=== PATIENT | female | born 1970 | race Caucasian/White ===

== ENCOUNTER 2023-12-31 16:47 | Outpatient (OUT) | payer BC, SELFPAY ==
--- NOTE | 2023-12-31 | XR_ITS ---
[address] [address] Patient Name: ANDREW JALLOH MRN: [id number] date: 1970 Sex: F Assigned Patient Location: [facility] Current Patient Location: Accession/Order Number: [id number] Exam Date: 12/31/2023 16:58 Report Date: 01/03/2024 07:45 At the request of: HELEN RUANO Procedure: XR clavicle RT PROCEDURE: XR clavicle RT HISTORY: Right clavicle pain COMPARISON: None. FINDINGS: BONES:Degenerative osteophytes along the margins of the acromioclavicular joint. No fracture, dislocation, bone lesion. SOFT TISSUES:No visible soft tissue swelling. EFFUSION:None visible. OTHER: Negative. XR/XR clavicle RT IMPRESSION: 1. No acute bone abnormality. 2. Moderate degenerative changes of acromioclavicular joint which would predispose to rotator cuff injury. Electronically authenticated by: NKECHI ARANDA Date: 01/03/2024 07:45
--- NOTE | 2023-12-31 | XR_ITS ---
The [address] [address] Patient Name: ANDREW JALLOH MRN: [id number] date: 1970 Sex: F Assigned Patient Location: [facility] Current Patient Location: [facility] Accession/Order Number: [id number] Exam Date: 12/31/2023 16:58 Report Date: 01/03/2024 07:48 At the request of: HELEN RUANO Procedure: XR cervical spine 5V EXAMINATION: XR cervical spine 5V HISTORY: Neck pain ; right clavicle pain radiating into neck and shoulder; no known injury COMPARISON: No relevant comparison available. FINDINGS: BONES: Mild degenerative facet arthropathy C5-C6, C6-C7. No fracture or spondylolisthesis. DISC SPACES: Slight disc space narrowing C4-C5, C5-C6, C6-C7 PARASPINOUS: Negative. No paraspinous abnormality is seen. OTHER: Negative. XR/XR cervical spine 5V IMPRESSION: 1. No acute abnormality. 2. Mild degenerative changes of the cervical spine. Electronically authenticated by: NKECHI ARANDA Date: 01/03/2024 07:48
== END 2023-12-31 16:48 | disposition home or self-care (01) ==
LOC: RAD 16:47
PROVIDERS: PCP Family Medicine; Visit Provider Family Medicine
DX: M89.8X1 Other specified disorders of bone, shoulder (principal); M54.2 Cervicalgia; M19.011 Primary osteoarthritis, right shoulder
CPT/HCPCS: 72050; 73000

== ENCOUNTER 2024-03-09 07:23 | Outpatient (OUT) | payer BC, SELFPAY ==
--- OUTSIDE RECORDS SUMMARY | 2024-03-09 07:25 | XMS_ITS | CCD ---
Author Organization [facility] Care Team Providers Care Video Technician Name Role Phone Unavailable Primary Care Provider Amna valenzuela REQUEST, DR SAMUEL LISTED Admitting Unavaila ble REQUEST, DR SAMUEL LISTED Attending Tristana travon PINTO, DR JUMANA Valenzuela Primary Care Unavailable REQUEST, DR SAMUEL LISTED Consulting Tristana SHAIKH Vidhya Arevalo Admitting Unavailable SHAIKH Vidhya DENG Attending Unavailable BINDU, DR JUMANA Valenzuela Primary Care Unavailable SHAIKH Vidhya DENG Consulting Unavailable BINDU, DR JUMANA Valenzuela Admitting Unavailable BINDU, DR JUMANA Valenzuela Attending Unavailable BINDU, DR JUMANA Valenzuela Primary Care Unavailable BINDU, DR JUMANA Valenzuela Consulting Unavailable Jumana Pinto MD Primary Care Provider [phone] Jumana Pinto MADELIN RODRÍGUEZ Referring Unavailable JUMANA PINTO Primary Care Unavailable Allergies Allergy Classification Reported Allergen(s) Allergy Type Date of Onset Reaction(s) Facility (3 sources) Penicillins Propensity to adverse reactions to drug 4 [place], [place] Comment on above: Onset Date: 11/23/19 21 (1 source) Penicillins Propensity to adverse reactions to drug [address] [place] [address] (4 sources) Penicillin G Drug Allergy 4 [facility] (3 sources) Substance with penicillin structure and antibacterial mechanism of action (substance) Drug allergy 1 Unknown [employer] Other Medications Current Medications Medication Drug Class(es) Dates Sig (Normalized) Sig (Original) nystatin 100 unt/mg topical powder (3 sources) Polyene Antifungal Start: 07-09-2016 nystatin (MYCOSTATIN) 372252 UNIT/GM powder Indications: Tinea cruris Apply 2 times daily as needed for rash. 1 Bottle 1 07/09/2016 Active Completed/Discontinued Medications Medication Drug Class(es) Dates Sig (Normalized) Sig (Original) citalopram 20 mg oral tablet (6 sources) Serotonin Reuptake Inhibitor Start: 06-13-2023 End: 12-31-2023 take 1 tablet by mouth once daily Citalopram 20 mg tablet Discontinued 0 .ROUTE .COMPLEX 90 September 11, 2023 10:36am December 31, 2023 11:56am TAKE 1 TABLET BY MOUTH EVERY DAY FOR 90 DAYS Start: 06-13-2023 End: 06-13-2023 take 1 tablet by mouth once daily Citalopram 20 mg tablet Discontinued 20 MG PO Daily June 12, 2023 11:00pm June 13, 2023 10:28am Start: 11-22-2022 take 1 tablet by norma th every twenty-four hours Citalopram Hydrobromide 20 MG 1 tablet Orally Once a day for 30 day(s) Nov, Active Problems Problem Classification Problem Date Documented Da te Episodic/Chronic Anxiety disorders (11 sources) Generalized anxiety disorder; Translations: [Generalized anxiety disorder] Onset: 11-22-2020 Chronic Malaise and fatigue (8 sources) Other fatigue; Translations: [Fatigue] Onset: 08-08-2021 Episodic Other bone disease and musculoskeletal deformities (1 source) Clavicle pain; Translations: [Other specified disorders of bone, shoulder] 12-31-2023 Episodic Other bone disease and musculoskeletal deformities (1 source) Other specified disorders of bone, shoulder; Translations: [Disorder of bone and cartilage, unspecified] 12-31-2023 Episodic Other screening for suspected conditions (not mental disorders or infectious disease) (1 source) Encounter for screening mammogram for malignant neoplasm of breast; Translations: [Encounter for screening mammogram for malignant neoplasm of breast] Onset: 04-23-2023 Episodic Spondylosis; intervertebral disc disorders; other back problems (2 sources) Neck pain; Translations: [Cervicalgia] 12-31-2023 Episodic Unclassified (3 sources) Patient encounter status; Translations: [Well woman exam with routine gynecological exam] Results Test Name Value Interpretation Reference Range Facil ity [facility] DIG[facility] SCREEN SELF REFERRAL W OR WO CAD BILATERALon 04-23-2023 [facility] DIGITAL SCREEN SELF REFERRAL W OR WO CAD BILATERAL EXAMINATION: SCREENING DIGITAL BILATERAL MAMMOGRAM WITH TOMOSYNTHESIS, 04/23/2023 TECHNIQUE: Screening mammography of the bilateral breasts was performed with tomosynthesis. 2D standard and 3D tomosynthesis combination imaging performed through both breasts in the MLO and CC projection. Computer aided detection was utilized in the interpretation of this exam. COMPARISON: January 16, 2022 and September 24, 2020 HISTORY: Screening. FINDINGS: Breasts are composed of scattered fibroglandular density. There is no dominant mass, architectural distortion or concerning grouping of microcalcification in either breast. IMPRESSION: No mammographic evidence of malignancy BIRADS: BIRADS - CATEGORY 1 Negative. Normal interval follow-up is recommended in 12 months. OVERALL ASSESSMENT - NEGATIVE A letter of notification will be sent to the patient regarding the results. The [employer] recommends annual mammograms for women 40 years and older. Interpreted by: Rohit Garza DO Signed by: Rohit Garza DO 04/23/23 Recipients: Jumana Pinto MD - Fax Final result Normal [facility] VIT D 1 25 DIHYDROXYon 08-10 Calcitriol(1,25 di-OH Vit D) 40.3 pg/mL Normal 24.8-81.5 [facility] Comment on above: Result Comment: Pl ease note reference interval change Performed By: #### V [id number] #### [facility] [address] [place] [address] Dr. Patricia Carpenter CBC AUTO DIFFon 08-08-2021 BASO # 0.1 103/ul Normal 0.0-0.1 [facility] Comment on above: Performed By: #### D ATCBC #### [facility] [address] [place] [address] Dr. Patricia Carpenter Basophils/100 WBC (Bld) 1.1 % Normal 0.2-2.0 [facility] Comment on above: Performed By: #### D ATCBC #### [facility] [address] [place] [address] Dr. Patricia Carpenter EO # 0.2 103/ul Normal 0.0-0.7 [facility] Comment on above: Performed By: #### D ATCBC #### [facility] [address] [place] [address] Dr. Patricia Carpenter Eosinophils/100 WBC (Bld) 2.4 % Normal 0.9-7.0 [facility] Comment on above: Performed By: #### D ATCBC #### [facility] [address] [place] [address] Dr. Patricia Carpenter Erythrocyte distribution width (RBC) [Ratio] 14.5 % Normal 11.0-15.0 [facility] Comment on above: Performed By: #### D ATCBC #### [facility] [address] [place] [address] Dr. Patricia Carpenter Hematocrit (Bld) [Volume fraction] 37.9 % Normal 36.0-48.0 [facility] Comment on above: Performed By: #### D ATCBC #### [facility] [address] [place] [address] Dr. Patricia Carpenter Hemoglobin (Bld) [Mass/Vol] 12.1 g/dL Normal 12.0-16.0 [facility] Comment on above: Performed By: #### D ATCBC #### [facility] [address] [place] [address] Dr. Patricia Carpenter IG # 0.03 10e3/ul Normal 0.00-0.03 [facility] Comment on above: Performed By: #### D ATCBC #### [facility] [address] [place] [address] Dr. Patricia Carpenter IG % 0.5 % Normal 0.0-0.5 [facility] Comment on above: Performed By: #### D ATCBC #### [facility] [address] [place] [address] Dr. Patricia Carpenter LYMPH # 1.5 103/ul Normal 1.2-3.8 [facility] Comment on above: Performed By: #### D ATCBC #### [facility] [address] [place] [address] Dr. Patricia Carpenter Lymphocytes/100 WBC (Bld) 22.9 % Normal 20.5-60.0 [facility] Comment on above: Performed By: #### D ATCBC #### [facility] [address] [place] [address] Dr. Patricia Carpenter MCH (RBC) [Entitic mass] 27.7 pg Normal 26.7-34.0 [facility] Comment on above: Performed By: #### D ATCBC #### [facility] [address] [place] [address] Dr. Patricia Carpenter MCHC (RBC) [Mass/Vol] 31.9 g/dL Normal 29.9-35.2 [facility] Comment on above: Performed By: #### D ATCBC #### [facility] [address] [place] [address] Dr. Patricia Carpenter MCV (RBC) [Entitic vol] 86.7 fL Normal 81.0-99.0 [facility] Comment on above: Performed By: #### D ATCBC #### [facility] [address] [place] [address] Dr. Patricia Carpenter MONO # 0.6 103/ul Normal 0.3-0.8 [facility] Comment on above: Performed By: #### D ATCBC #### [facility] [address] [place] [address] Dr. Patricia Carpenter Monocytes/100 WBC (Bld) 9.5 % Normal 1.7-12.0 [facility] Comment on above: Performed By: #### D ATCBC #### [facility] [address] [place] [address] Dr. Patricia Carpenter NEUT # 4.0 103/ul Normal 1.4-6.5 [facility] Comment on above: Performed By: #### D ATCBC #### [facility] [address] [place] [address] Dr. Patricia Carpenter Neutrophils/100 WBC (Bld) 63.6 % Normal 43.0-75.0 [facility] Comment on above: Performed By: #### D ATCBC #### [facility] [address] [place] [address] Dr. Patricia Carpenter Platelet mean volume (Bld) [Entitic vol] 9.5 fL Normal 9.5-13.5 [facility] Comment on above: Performed By: #### D ATCBC #### [facility] [address] [place] [address] Dr. Patricia Carpenter PLT 303 103/ul Normal 150-450 [facility] Comment on above: Performed By: #### D ATCBC #### [facility] [address] [place] [address] Dr. Patricia Carpenter RBC 4.37 106/ul Normal 4.20-5.40 [facility] Comment on above: Performed By: #### D ATCBC #### [facility] [address] [place] [address] Dr. Patricia Carpenter WBC 6.3 103/ul Normal 4.0-11.0 [facility] Comment on above: Performed By: #### D ATCBC #### [facility] [address] [place] [address] Dr. Patricia Carpenter ELIEZER - TSHon 08-08-2021 TSH 2.242 uIU/mL Normal 0.358-3.740 [facility] Comment on above: Performed By: #### D ATTPAULA DATBMP #### [facility] [address] [place] [address] Dr. Patricia Carpenter TSH RANGE SEE BELOW Normal [facility] Comment on above: Result Comment: <0.3 4 UIU/ml HYPERTHYROID 0.34-5.60 UIU/ml EUTHYROID >5.60 UIU/ml HYPOTHYROID Performed By: #### D ATTSH, DATBMP #### [facility] [address] [place] [address] Dr. Patricia Carpenter ELIEZER- BMP WITH LIPIDon 2021 Anion gap [Moles/Vol] 11.3 mmol/L Normal [facility] Comment on above: Performed By: #### D ATTSH, DATBMP #### [facility] [address] [place] [address] Dr. Patricia Carpenter Calcium [Mass/Vol] 8.7 mg/dL Normal 8.5-10.1 [facility] Comment on above: Performed By: #### D ATTSH, DATBMP #### [facility] [address] [place] [address] Dr. Patricia Carpenter Chloride [Moles/Vol] 106 mmol/L Normal 98-107 [facility] Comment on above: Performed By: #### D ATTSH, DATBMP #### [facility] [address] [place] [address] Dr. Patricia Carpenter Cholesterol [Mass/Vol] 184 mg/dL Normal <=200 [facility] Comment on above: Performed By: #### D ATTSH, DATBMP #### [facility] [address] [address] [address] Patricia Carpenter Cholesterol in HDL [Mass/Vol] 55 mg/dL Normal 40-60 [facility] Comment on above: Performed By: #### D ATTPAULA, DATBMP #### [facility] [address] [place] [address] Dr. Patricia Carpenter Cholesterol in LDL [Mass/Vol] 112.8 mg/dL Normal [facility] Comment on above: Performed By: #### D ATTPAULA, DATBMP #### [facility] [address] [place] [address] Dr. Patricia Carpenter CO2 [Moles/Vol] 27.1 mmol/L Normal 21.0-32.0 [facility] Comment on above: Performed By: #### D ATTPAULA, DATBMP #### [facility] [address] [place] [address] Dr. Patricia Carpenter Creatinine [Mass/Vol] 0.73 mg/dL Normal 0.55-1.02 [facility] Comment on above: Performed By: #### D ATTSH, DATBMP #### [facility] [address] [place] [address] Dr. Patricia Carpenter EGFR-AF [place]IZ[place] >60 Normal >=60 [facility] Comment on above: Performed By: #### D ATTSH, DATBMP #### [facility] [address] [place] [address] Dr. Patricia Carpenter EGFR-NON AF [place] >60 Normal >=60 [facility] Comment on above: Performed By: #### D ATTSH, DATBMP #### [facility] [address] [place] [address] Dr. Patricia Carpenter Glucose [Mass/Vol] 104 mg/dL Normal 74-106 [facility] Comment on above: Performed By: #### D ATTPAULA, DATBMP #### [facility] [address] [address] [address] Patricia Carpenter HDL NORMAL > or = 60 mg/dl - LO W CARDIOVASCULAR RISK <40 mg/dl - HIGH CARDIOVASCULAR RISK Normal [facility] Comment on above: Performed By: #### D ATTSH, DATBMP #### [facility] [address] [place] [address] Dr. Patricia Carpenter LDL CALC NORMAL SEE BELOW Normal [facility] Comment on above: Result Comment: <100 mg/dl OPTIMAL 100 - 129 mg/dl NEAR OR ABOVE OPTIMAL 130 - 159 mg/dl BORDERLINE HIGH 160 - 189 mg/dl HIGH >190 mg/dl VERY HIGH Performed By: #### D ATTPAULA, DATBMP #### [facility] [address] [address] [address] Patricia Carpenter Potassium [Moles/Vol] 4.4 mmol/L Normal 3.5-5.1 [facility] Comment on above: Performed By: #### D ATTPAULA, DATBMP #### [facility] [address] [place] [address] Dr. Patricia Carpenter Sodium [Moles/Vol] 140 mmol/L Normal 136-145 [facility] Comment on above: Performed By: #### D ATTPAULA, DATBMP #### [facility] [address] [place] [address] Dr. Patricia Carpenter Triglyceride [Mass/Vol] 81 mg/dL Normal <=150 [facility] Comment on above: Performed By: #### D ATTSH, DATBMP #### [facility] [address] [place] [address] Dr. Patricia Carpenter Urea nitrogen [Mass/Vol] 17.0 mg/dL Normal 7.0-18.0 [facility] Comment on above: Performed By: #### D ATTSH, DATBMP #### [facility] [address] [place] [address] Dr. Patricia Carpenter Urea nitrogen/Creatinine [Mass ratio] 23.3 mg/mg Normal [facility] Comment on above: Performed By: #### D MIKAELA JACOBSENP #### [facility] [address] [place] [address] Dr. Patricia Carpenter VLDL CALC 16.2 mg/dL Normal [facility] Comment on above: Performed By: #### D ELIEZER JACOBSENBMP #### [facility] [address] [place] [address] Dr. Patricia Carpenter TSHon 11-22-2020 TSH 1.825 uIU/mL Normal 0.470-4.680 [facility] Comment on above: Performed By: #### T SH #### [facility] [address] [place] [address] Dr. Patricia Carpenter TSH RANGE SEE BELOW Normal [facility] Comment on above: Result Comment: <0.3 4 UIU/ml HYPERTHYROID 0.34-5.60 UIU/ml EUTHYROID >5.60 UIU/ml HYPOTHYROID Performed By: #### T SH #### [facility] [address] [place] [address] Dr. Patricia Carpenter Coding Summary.on 11-17-2019 Coding Summary. CODING DATE: 11/17/2019 FINAL [facility] STATUS: Home (Routine DC) PAYOR: Commercial Insurance ADMIT DX: REASON FOR VISIT DX: R06.02 Shortness of breath FINAL DX: PRINCIPAL: R06.02 Shortness of breath SECONDARY: R05 Cough Z20.828 Contact with and (suspected) exposure to other viral communicable diseases PYMT PROC APC STAT DESCRIPTION DOCTOR NAME DATE NOTE: The code number assigned matches the documented diagnosis and / or procedure in the patient's chart. However, the narrative phrase printed from the coding software may appear abbreviated, or result in slightly different terminology. Coded By: Bertha July Date Saved: 11/17/2019 06:53 pm Normal [facility] Coding Summary. CODING DATE: 11/17/2019 FINAL [facility] STATUS: Home (Routine DC) PAYOR: [employer] Insurance ADMIT DX: REASON FOR VISIT DX: R06.02 Shortness of breath FINAL DX: PRINCIPAL: R06.02 Shortness of breath SECONDARY: R05 Cough Z20.828 Contact with and (suspected) exposure to other viral communicable diseases PYMT PROC APC STAT DESCRIPTION DOCTOR NAME DATE NOTE: The code number assigned matches the documented diagnosis and / or procedure in the patient's chart. However, the narrative phrase printed from the coding software may appear abbreviated, or result in slightly different terminology. Coded By: BerthaJuly Date Saved: 11/17/2019 06:52 pm Normal [facility] Coding Summary. CODING DATE: 11/17/2019 FINAL [facility] STATUS: Home (Routine DC) PAYOR: Commercial Insurance ADMIT DX: REASON FOR VISIT DX: R06.02 Shortness of breath FINAL DX: PRINCIPAL: R06.02 Shortness of breath SECONDARY: R05 Cough Z20.828 Contact with and (suspected) exposure to other viral communicable diseases PYMT PROC APC STAT DESCRIPTION DOCTOR NAME DATE NOTE: The code number assigned matches the documented diagnosis and / or procedure in the patient's chart. However, the narrative phrase printed from the coding software may appear abbreviated, or result in slightly different terminology. Coded By: Bertha July Date Saved: 11/17/2019 06:52 pm Normal [facility] COVID-19 ([facility])on 10-22-2019 COVID FT Intrl QC Pass Normal Pass [facility] Comment on above: Performed By: #### 2 [id number] #### [facility] [address] [place] [address] COVID-19 ([facility]) Not Detected Normal Not Detected [facility] Comment on above: Result Comment: This test result should be correlated with clinical presentations and medical history by a healthcare provider to determine its clinical significance. This assay was performed by a reverse transcriptase real-time polymerase chain reaction (rt PCR) method on the [employer] system. This test has been authorized only for the detection of nucleic acid from SARS-CoV-2, not for any other viruses or pathogens. This test has not been FDA cleared or approved. This test has been authorized by FDA under an Emergency Use Authorization (EUA). This test is only authorized for the duration of time the declaration on that circumstances exist justifying the authorization emergency use of in vitro diagnostic tests for detection and/or diagnosis of COVID-19 infection under section 564 (b) (1) of the Act, 21 U.S.C. 360 bbb-3 (b) (1), unless authorization is terminated or revoked sooner. Performed By: #### 2 [id number] #### [facility] [address] [place] [address] Specimen source Nom (Unsp spec) Nasal Normal [facility] Comment on above: Performed By: #### 2 [id number] #### [facility] [address] [place] [address] Employed in Healthcare YES Normal [facility] Comment on above: Performed By: #### 2 [id number] #### [facility] [address] [place] [address] First Test Unknown Normal [facility] Comment on above: Performed By: #### 2 [id number] #### [facility] [address] [place] [address] Hospitalized? NO Normal [facility] Comment on above: Performed By: #### 2 [id number] #### [facility] [address] [place] [address] ICU NO Normal [facility] Comment on above: Performed By: #### 2 [id number] #### [facility] [address] [place] [address] ? Unknown Normal [facility] Comment on above: Performed By: #### 2 [id number] #### [facility] [address] [place] [address] Resides in a Congregate Care Setting Unknown Normal [facility] Comment on above: Performed By: #### 2 [id number] #### [facility] [address] [place] [address] Symptomatic as defined by CDC Unknown Normal [facility] Comment on above: Performed By: #### 2 [id number] #### [facility] [address] [place] [address] Physician Orderon 10-22-2019 Physician Order [id number]:127 Normal [facility] DIGITAL SCREEN SELF REFE RRAL W OR WO CAD BILATERALon 10-07-2018 No mammographic evidence for malignancy. BIRADS: BIRADS - CATEGORY 1 Negative, no evidence of malignancy. Normal interval follow-up is recommended in 12 months. OVERALL ASSESSMENT - NEGATIVE A letter of notification will be sent to the patient regarding the results. [employer] recommends annual mammograms for women 40 years and older. [facility] [employer] [place] EXAMINATION: BILATERAL DIGITAL SCREENING MAMMOGRAM, 10/06/2018 10:12 am TECHNIQUE: CC and MLO views of the left and right breasts were obtained. Computer aided detection was utilized in the interpretation of this exam. COMPARISON: 08/27/2016 and 08/30/2014 HISTORY: Screening. FINDINGS: There are scattered areas of fibroglandular density. There is no new dominant mass, suspicious microcalcification, or area of architectural distortion. No abnormality is identified on the tomosynthesis images. [place], [place], pn Incoming Radiant Results From [employer] - 10/07/2018 9:22 AM EDT EXAMINATION: BILATERAL DIGITAL SCREENING MAMMOGRAM, 10/06/2018 10:12 am TECHNIQUE: CC and MLO views of the left and right breasts were obtained. Computer aided detection was utilized in the interpretation of this exam. COMPARISON: 08/27/2016 and 08/30/2014 HISTORY: Screening. FINDINGS: There are scattered areas of fibroglandular density. There is no new dominant mass, suspicious microcalcification, or area of architectural distortion. No abnormality is identified on the tomosynthesis images. IMPRESSION: No mammographic evidence for malignancy. BIRADS: BIRADS - CATEGORY 1 Negative, no evidence of malignancy. Normal interval follow-up is recommended in 12 months. OVERALL ASSESSMENT - NEGATIVE A letter of notification will be sent to the patient regarding the results. [employer] recommends annual mammograms for women 40 years and older. [place], [place] Vital Signs Date Time Vital Sign Value Performing Clinician Facility 12-31-2023 11:49-0500 Body height 157.48 cm [facility] 12-31-2023 11:49-0500 Body mass index (BMI) [Ratio] 28.7 kg/m2 [facility] 12-31-2023 11:49-0500 Body weight 71.21 kg [facility] 12-31-2023 11:49-0500 Diastolic blood pressure 96 mm[Hg] [facility] 12-31-2023 11:49-0500 Heart rate 83 /min [facility] 12-31-2023 11:49-0500 Systolic blood pressure 165 mm[Hg] [facility] 11-22-2022 11:45-0400 Body height 156.21 cm Jumana Pinto Other [facility] [employer] Other 11-22-2022 11:45-0400 Body mass index (BMI) [Ratio] 25.09 kg/m2 Jumana Pinto Other [employer] Other 11-22-2022 11:45-0400 Body weight 61.24 kg Jumana Pinto Other [employer] Other 11-22-2022 11:45-0400 Diastolic blood pressure 84 mm[Hg] Jumana Pinto Other [employer] Other 11-22-2022 11:45-0400 Systolic blood pressure 135 mm[Hg] Jumana Pinto Other [employer] Other Encounters Encounter Date Encounter Type Care Provider Facility Start: 12-31-2023 End: 12-31-2023 ambulatory [facility] Work Phone: Start: 12-31-2023 End: 12-31-2023 Patient encounter procedure [facility] Work Phone: Start: 04-23-2023 End: 04-26-2023 ambulatory [facility] Start: 03-17-2023 End: 03-17-2023 ambulatory Jumana Pinto Other [employer] Other Start: 03-17-2023 Telephone encounter Jumana Bindu [facility] Start: 12-19-2022 End: 12-19-2022 ambulatory Jumana Pinto Other [employer] Other Start: 12-19-2022 Telephone encounter Jumana Bindu [facility] Start: 11-22-2022 End: 11-22-2022 ambulatory Jumana Pinto Other [employer] Other Start: 11-22-2022 Office outpatient vi sit 15 minutes Jumana Pinto [facility] Start: 03-27-2022 End: 03-27-2022 Patient encounter procedure Jumana Pinto MD Work Phone: [facility] Start: 03-27-2022 End: 03-27-2022 Subsequent hospital visit by physician Jumana Pinto MD Work Phone: [facility] Comment on above: Women's annual routi ne gynecological examination Start: 08-08-2021 End: 08-09-2021 ambulatory NONE LISTED REQUEST Facility:[facility] Start: 11-22-2020 End: 11-23-2020 ambulatory SHAIKH Vidhya MEGANGauravMARCIE Facility: Start: 10-06-2018 End: 10-06-2018 Subsequent hospital visit by physician [facility] Comment on above: Well woman exam with routine gynecological exam; Screening for HPV (human papillomavirus) Start: 10-06-2018 End: 10-08-2018 Subsequent hospital visit by physician [facility] Mamm[facility] At [facility] [place] Comment on above: Breast cancer screen ing Procedures Date Procedure Procedure Detail Performing Clinician Start: 10-06-2018 Screening digital br east tomosynthesis bi Madelin Valenzuela Marcos Work Phone: Start: 10-06-2018 Microscopic observat ion [Identifier] in Cervix by Cyto stain Jumana Pinto MD Work Phone: Plan of Treatment Date Care Activity Detail Author Start: 01-17-2024 Screening for malign ant neoplasm of breast [facility] Start: 10-07-2023 Screening for malign ant neoplasm of cervix [facility] Start: 04-02-2023 End: 04-02-2023 Patient encounter procedure 04/02/2023 Office Visit Obstetrics and Gynecology Madelin Rodríguez, LABORER MINE - CNM [address] [place] [address] [facility] Start: 12-11-2022 End: 12-11-2022 Patient encounter procedure 12/11/2022 Office Visit Obstetrics and Gynecology Madelin Rodríguez LABORER MINE - CNM [address] [place] [address] [facility] Start: 05-01-2022 End: 05-01-2022 Patient encounter procedure 05/01/2022 Office Visit Obstetrics and Gynecology Madelin Rodríguez APRN - CNTamir [address] [place] [address] [facility] Start: 05-01-2022 End: 05-01-2022 Professional / ancillary services management 05/01/2022 Ancillary Procedure Obstetrics and Gynecology [facility] Start: 12-25-2021 Depression Screen Depression Screen [facility] Start: 10-06-2021 Screening for malign ant neoplasm of cervix Pap smear [facility] Start: 09-17-2021 Influenza vaccination Flu vaccine (# 1) [facility] Start: 2021 Shingles vaccine (1 of 2) Shingles vaccine (1 of 2) [facility] Start: 10-07-2019 Diabetes screen Diabetes screen [place], [place] Comment on above: Postponed from 03/12 (Not Indicated) Start: 10-07-2019 Lipid screen Lipid screen [place], [place] Comment on above: Postponed from 10/31 (Not Indicated) Start: 07-10-2019 Cervical cancer screen Cervical canc er screen [place], [place] Start: 11-23-2018 HIV screen HIV screen [place], [place] Comment on above: Postponed from 03/12 (Not Indicated) Start: 10-27-2018 DTaP/Tdap/Td vaccine (1 - Tdap) DTaP/Tdap/Td vaccine (1 - Tdap) [place], [place] Comment on above: Postponed from 03/12 (Not Indicated) Start: 10-18-2018 Influenza vaccination Flu vaccine (# 1) [place] Start: 10-31-2017 Lipid panel Lipids [facility] Start: 2016 Screening for malign ant neoplasm of colon [facility] Start: 2006 Diabetes screen Diabetes screen [facility] Start: 1990 DTaP/Tdap/Td vaccine (1 - Tdap) DTaP/Tdap/Td vaccine (1 - Tdap) [facility] Start: 1989 Hepatitis C screening Hepatitis C sc reen [facility] Start: 1986 HIV screening HIV screen [facility] Start: 1971 COVID-19 Vaccine (#1) COVID-19 Vacci ne (#1) [facility] End: 10-06-2018 Cytopathology procedure, preparation of smear, genital source [facility] Routine Well woman exam with routine gynecological exam Screening for HPV (human papillomavirus) 1 Occurrences starting 10/06/2018 until 10/06/2018 [place], [place] Comment on above: 1 Occurrences starti ng 10/06/2018 until 10/06/2018 End: 03-27-2022 Cytopathology procedure, preparation of smear, genital source [facility]ME[facility] Lab Routine Women's Annual Routine Gynecological Examination 1 Occurrences starting 03/27/2022 until 03/27/2022 [facility] Work Phone: Comment on above: 1 Occurrences starti ng 03/27/2022 until 03/27/2022 XR Cervical spine [address] [facility] XR Clavicle - right Views [facility] Immunizations Immunization Date Immunization Notes Care Provider Megan zhao 07-21-2020 COVID-19 Vaccine Pfi zer - Documentation Purposes Only Jumana Pinto Other [facility] 06-30-2020 COVID-19 Vaccine Pfi zer - Documentation Purposes Only Jumana Pinto Other [facility] Payers Date Payer Category Payer Unknown [id number] 2021 Unknown [id number] 2016 Private Health Insurance [employer] [place] [employer] xxxxxxxxxx 2016-Present [phone] [address] [place] [address] xxxxxxxxxx [id number] 1971 Unknown [id number] 1971 Unknown [id number] 1971 Unknown [id number] 1959 Private Health Insurance [id number] 1959 Self-pay 1959 Unknown [id number] Unknown [id number] Social History Date Type Detail Facility Start: 10-06-2018 End: 06-13-2023 Tobacco smoking status NHIS Never smoker [employer] Start: 10-06-2018 Alcohol intake No [facility] Start: 1970 Sex Assigned At Not on file [place], [place] Start: 10-06-2018 Tobacco use and exposure Smokeless tobacco non-user [employer] Work Phone: Start: 03-27-2022 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) [employer] Phone: Start: 12-31-2023 Sex Female (finding) [facility] Start: 1970 Sex Assigned At Female F [facility] Evaluation note 03-17-2023 Note Date & Type Note Facility 03-17-2023 Evaluation note Encounter Date Diagnosis Assessment Notes Feb, АНДРЕЙ (generalized anxiety disorder) (ICD-10 - F41.1) [employer] Other Evaluation note 12-19-2022 Note Date & Type Note Facility 12-19-2022 Evaluation note Encounter Date Diagnosis Assessment Notes Dec, АНДРЕЙ (generalized anxiety disorder) (ICD-10 - F41.1) [employer] Other Evaluation note 11-22-2022 Note Date & Type Note Facility 11-22-2022 Evaluation note Encounter Date Diagnosis Assessment Notes Nov, АНДРЕЙ (generalize d anxiety disorder) (ICD-10 - F41.1) Discussed counseling, herbal supplements and start medication. She agrees to start med and will report effects in 3-4 weeks. [employer] Other Evaluation note Note Date & Type Note Facility Evaluation note Diagnosis Women's annual routine gynecological examination documented in this encounter [facility] Work Phone: Evaluation note Note Date & Type Note Facility Evaluation note Diagnosis Onset Date Resolution Cervical pain acute December 302023 11:39am Pain of right clavicle acute December 30, 2 024 11:39am [facility] Work Phone: History general Narrative - Reported Note Date & Type Note Facility History general Narrative - Reported Type Medical History АНДРЕЙ (generalized anxiety disorde r) Medical History Fatigue Surgical History x 3 Hospitalization History child [employer] [employer] Other Assessments Diagnosis Well woman exam with routine gynecological exam Routine gynecological examination Screening for HPV (human papillomavirus) Special screening examination for human papillomavirus (HPV) Diagnosis Breast cancer screening Breast screening, unspecified Advance Directives Documents on File Type Date Recorded Patient Supervisor Partial Denture Department Expl anation Advance Directives and Living Will Power of Climate Change Risk Assessor Documents on File Type Date Recorded Patient Supervisor Partial Denture Department Expl anation Advance Directives and Living Will Power of Climate Change Risk Assessor Advance Directive Response Recorded Date/ Time Advance Directives No December 11:38am Reason for Referral Status Reason Specialty Diagnoses / Procedures Referred By Contact Referred To Contact Authorized Radiology Diagnoses Breast cancer screening Procedures ESTRELLA DIGITAL SCREEN SELF REFERRAL W OR WO CAD BILATERAL Madelin Rodríguez, LABORER MINE - CNM [address] [place] [address] Summary Purpose Family History Relationship Condition Age at Onset Recorded Date/T eddie daughter Malignant neoplasm Unknown father Diabetes mellitus Unknown Chief Complaint and Reason for Visit Chief Complaint Admit Date R Shoulder Pain December 31, 2023 11:39am Reason for Visit Admit Date Cervical pain December 31, 2023 11:39am Pain of right clavicle December 30 11:39am Additional Source Comments Reason for Visit (unrecogniz ed section and content) Status Reason Specialty Diagnoses / Procedures Referre d By Contact Referred To Contact [facility] Diagnoses Encounter for screening mammogram for malignant neoplasm of breast Procedures CHG SCREENING MAMMOGRAPHY BI 2-VIEW BREAST INC Madelin Wetzel, LABORER MINE - CN [address] [place] [address] [facility] [place] [address] INFORMATION SOURCE (unrecogn ized section and content) DATE CREATED AUTHOR 11/18/2019 [facility] DATE CREATED AUTHOR AUTHOR'S ORGANIZ ATION 08/11/2021 [facility] DATE CREATED AUTHOR AUTHOR'S ORGANIZ ATION 04/26/2023 [facility] Care Teams (unrecognized sec tion and content) Video Technician Relationship Specialty Start Date End Date Jumana Pinto MD [address] [place] [id number] PCP - General Family Medicine 12/25/20 Team Status: Active Member Role Status Dates Jumana Pinto MD Primary Care Provider Active Team Status: Inactive Member Role Status Dates Jumana Pinto MD Primary Care Provide r, Attending Provider Active Start: December 31, 2023 End: December 31, 2023 Goals (unrecognized section and content) Goals may be documented in a n alternate section FOR RECORDS PERTAINING TO PATIENTS WHO ARE OR HAVE BEEN ENROLLED IN A CHEMICAL DEPENDENCY/SUBSTANCEABUSE PROGRAM, SOME INFORMATION MAY BE OMITTED. This clinical summary was aggregated from multiple sources. Caution should be exercised in using it in the provision of clinical care. This summary normalizes information from multiple sources, and as a consequence, information in this document may materially change the coding, format and clinical context of patient data. In addition, data may be omitted in some cases. CLINICAL DECISIONS SHOULD BE BASED ON THE PRIMARY CLINICAL RECORDS. [facility]. provides no warranty or guarantee of the accuracy or completeness of information in this document.
--- NOTE | 2024-03-09 07:30 | CA_ITS ---
Patient Name: ANDREW JALLOH MR#: [id number] : 1970 Exam Date: 03/09/2024 Ordering Doctor: DR Jumana Pinto M.D. ECHOCARDIOGRAM REPORT PROCEDURE: CA ECHO DOPPLER COMPLETE INDICATIONS: Palpitations COMPARISON: None. DESCRIPTION: COMPLETE ECHOCARDIOGRAM Real-time transthoracic echocardiography with 2D, M-mode, spectral and color flow Doppler performed. QUALITY: Technical quality was good. LEFT VENTRICLE: Normal chamber size. Mild proximal septal hypertrophy (sigmoid septum). LV EF: Normal left ventricular ejection fraction 55 to 60%, no regional wall motion abnormalities DIASTOLIC: Normal diastolic function. ATRIAL SEPTUM: Visually appears intact. LEFT ATRIUM: Normal chamber size. RIGHT ATRIUM: Normal chamber size. RIGHT VENTRICLE: Normal chamber size. Normal right ventricular systolic function. TRICUSPID VALVE: Normal mobility and thickness. No stenosis with trivial regurgitation. No evidence of pulmonary hypertension.RVSP 25 mmHg MITRAL VALVE: Normal mobility and thickness. No evidence of mitral valve stenosis. There is no mitral annular calcification. No mitral regurgitation. AORTIC VALVE: Normal trileaflet appearance. No visible sclerosis. Normal leaflet mobility. No evidence of aortic valve stenosis. No aortic regurgitation. AORTIC ROOT: Normal diameter and appearance. Ascending aorta is normal in size PULMONIC VALVE: Normal thickness and mobility. Normal with No regurgitation. PERICARDIUM: No evidence of pericardial effusion. IVC: Normal size and Collapes with inspirations. PLEURA: CONCLUSION: Normal left diastolic function without wall motion abnormalities, ejection fraction 55 to 60% Mildly thickened proximal septum Normal left ventricle diastolic function Normal right ventricle size and systolic function, RVSP 25 mmHg No evidence of pulmonary hypertension Trace tricuspid regurgitation No significant valvular abnormalities Adult Echocardiography Procedure Report Left Ventricle LVEDD (3.7 - 5.6 cm): 3.91 cm LVESD (2.2 - 4.0 cm): 2.67 cm LVIVS thickness (0.6 - 1.2 cm): 1.34 cm LVPW thickness (0.5 - 1.0 cm): 0.76 cm e': 0.08 m/s E - e': 8.50 LVOT Max Gradient: 3.09 mm[Hg] LVOT Area (cm2): 0.88 m/s Peak Velocity (LVOT): 0.88 m/s Mean Velocity (LVOT): 0.60 m/s LVOT Diameter 2.06 cm Left Ventricular Ejection Fraction: Left Atrium LA Volume Index (2D A2C): 23.40 ml/m2 Left Atrium Systolic Dimension: 3.41 cm Mitral Valve MV E to A Ratio: 0.88 MV Max Gradient: MV Mean Gradient: Mitral Valve A-Wave Peak Velocity: 0.74 m/s Mitral Valve E-Wave Peak Velocity: 0.65 m/s Cardiovascular Orifice Area: Right Ventricle RV Internal Diastolic Dimension: Aorta AO Root Diam: 2.61 cm Ascending Ao Diam: 2.59 cm Aortic Valve AoV Area (Peak Marco A): 3.06 cm2, 3.06 cm2 AoV Area (VTI): 2.73 cm2, 2.73 cm2 Deceleration [place]: Pressure Half-Time: Peak Velocity(Antegrade Flow): 0.96 m/s Peak Gradient(Antegrade Flow): 3.69 mm[Hg] Mean Velocity(Antegrade Flow): 0.69 m/s Mean Gradient(Antegrade Flow): 2.15 mm[Hg] Velocity Time Integral: 22.67 cm Tricuspid Valve Peak Velocity (Regurgitant Flow): 2.33 m/s Peak Velocity: Pulmonic Valve Mean Gradient: 2.53 mm[Hg] Mean Velocity: 0.74 m/s Peak Velocity: 1.10 m/s, 0.95 m/s Peak Gradient: 3.62 mm[Hg], 4.87 mm[Hg] Right Atrium Right Atrium Systolic Pressure: 18.67 ml, 18.67 ml Dictated by: Nallely Carroll MD on 03/09/2024 at 18:31 Approved by: Nallely Carroll MD on 03/09/2024 at 18:36
== END 2024-03-09 07:24 | disposition home or self-care (01) ==
LOC: CARD 07:23
PROVIDERS: PCP Family Medicine; Visit Provider Family Medicine
DX: R00.2 Palpitations (principal)
CPT/HCPCS: 93306

== ENCOUNTER 2024-03-10 07:27 | Outpatient (OUT) | payer BC, SELFPAY ==
--- OUTSIDE RECORDS SUMMARY | 2024-03-09 08:08 | XMS_ITS | CCD ---
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 Name Role Phone Unavailable Primary Care Provider [...] BINDU, DR JUMANA Valenzuela Consulting Unavailable Jumana Pitno MD Primary Care Provider Jumana Pinto MADELIN RODRÍGUEZ Referring Unavailable JUMANA PINTO Primary Care Unavailable Allergies Allergy Classification Reported Allergen(s) Allergy Type Date of Onset Reaction(s) Facility (3 sources) Penicillins Propensity to adverse reactions to drug 4 [place], [place] Comment on above: Onset Date: 11/23/19 21 (1 source) Penicillins Propensity to adverse reactions to drug [address] [place] [address] (4 sources) Penicillin G Drug Allergy 4 [facility] (3 sources) Substance with penicillin structure and antibacterial mechanism of action (substance) Drug allergy 1 Unknown [facility] Other Medications Current Medications Medication Drug Class(es) Dates Sig (Normalized) Sig (Original) nystatin 100 unt/mg topical powder (3 sources) Polyene Antifungal Start: 07-09-2016 nystatin (MYCOSTATIN) 974338 UNIT/GM powder Indications: Tinea cruris Apply 2 [...] Name Value Interpretation Reference Range Facil ity [facility] NAYELI DIGITAL SCREEN SELF REFERRAL W OR WO CAD BILATERALon 04-23-2023 [facility] NAYELI DIGITAL SCREEN SELF REFERRAL W OR [...] to the patient regarding the results. [employer] recommends annual mammograms for women 40 years and older. Interpreted by: Rohit Garza DO Signed by: Rohit Garza DO 04/23/23 Recipients: Jumana Pinto MD - Fax Final result Normal [facility] VIT D 1 25 DIHYDROXYon 08-10 Calcitriol(1,25 di-OH Vit D) 40.3 pg/mL Normal 24.8-81.5 [facility] Comment on above: Result Comment: Pl ease note reference interval change Performed By: #### V [id number] #### [facility] [address] [place] [address] Dr. Patricia Carpenter CBC AUTO DIFFon 08-08-2021 BASO # 0.1 103/ul Normal 0.0-0.1 [facility] Comment on above: Performed By: #### D ATCBC #### [facility] [address] [place] [address] Dr. Patricia Carpenter Basophils/100 WBC (Bld) 1.1 % Normal 0.2-2.0 [facility] Comment on above: Performed By: #### D ATCBC #### [facility] [address] [place] [address] Dr. Patricia Carpenter EO # 0.2 103/ul Normal 0.0-0.7 [facility] Comment on above: Performed By: #### D ATCBC #### [facility] [address] [place] [address] Dr. Patricia Carpenter Eosinophils/100 WBC (Bld) 2.4 % Normal 0.9-7.0 [facility] Comment on above: Performed By: #### D ATCBC #### [facility] [address] [place] [address] Dr. Patricia Carpenter Erythrocyte distribution width (RBC) [Ratio] 14.5 % Normal 11.0-15.0 [facility] Comment on above: Performed By: #### D ATCBC #### [facility] [address] [place] [address] Dr. Patricia Carpenter Hematocrit (Bld) [Volume fraction] 37.9 % Normal 36.0-48.0 [facility] Comment on above: Performed By: #### D ATCBC #### [facility] [address] [place] [address] Dr. Patricia Carpenter Hemoglobin (Bld) [Mass/Vol] 12.1 g/dL Normal 12.0-16.0 [facility] Comment on above: Performed By: #### D ATCBC #### [facility] [address] [place] [address] Dr. Patricia Carpenter IG # 0.03 10e3/ul Normal 0.00-0.03 [facility] Comment on above: Performed By: #### D ATCBC #### [facility] [address] [place] [address] Dr. Patricai Carpenter IG % 0.5 % Normal 0.0-0.5 [facility] Comment on above: Performed By: #### D ATCBC #### [facility] [address] [place] [address] Dr. Patricia Carpenter LYMPH # 1.5 103/ul Normal 1.2-3.8 [facility] Comment on above: Performed By: #### D ATCBC #### [facility] [address] [place] [address] Dr. Patricia Carpenter Lymphocytes/100 WBC (Bld) 22.9 % Normal 20.5-60.0 [facility] Comment on above: Performed By: #### D ATCBC #### [facility] [address] [place] [address] Dr. Patricia Carpenter MCH (RBC) [Entitic mass] 27.7 pg Normal 26.7-34.0 [facility] Comment on above: Performed By: #### D ATCBC #### [facility] [address] [place] [address] Dr. Patricia Carpenter MCHC (RBC) [Mass/Vol] 31.9 g/dL Normal 29.9-35.2 [facility] Comment on above: Performed By: #### D ATCBC #### [facility] [address] [place] [address] Dr. Patricia Carpenter MCV (RBC) [Entitic vol] 86.7 fL Normal 81.0-99.0 [facility] Comment on above: Performed By: #### D ATCBC #### [facility] [address] [place] [address] Dr. Patricia Carpenter MONO # 0.6 103/ul Normal 0.3-0.8 [facility] Comment on above: Performed By: #### D ATCBC #### [facility] [address] [place] [address] Dr. Patricia Carpenter Monocytes/100 WBC (Bld) 9.5 % Normal 1.7-12.0 [facility] Comment on above: Performed By: #### D ATCBC #### [facility] [address] [place] [address] Dr. Patricia Carpenter NEUT # 4.0 103/ul Normal 1.4-6.5 [facility] Comment on above: Performed By: #### D ATCBC #### [facility] [address] [place] [address] Dr. Patricia Carpenter Neutrophils/100 WBC (Bld) 63.6 % Normal 43.0-75.0 [facility] Comment on above: Performed By: #### D ATCBC #### [facility] [address] [place] [address] Dr. Patricia Carpenter Platelet mean volume (Bld) [Entitic vol] 9.5 fL Normal 9.5-13.5 [facility] Comment on above: Performed By: #### D ATCBC #### [facility] [address] [place] [address] Dr. Patricia Carpenter PLT 303 103/ul Normal 150-450 [facility] Comment on above: Performed By: #### D ATCBC #### [facility] [address] [place] [address] Dr. Patricia Carpenter RBC 4.37 106/ul Normal 4.20-5.40 [facility] Comment on above: Performed By: #### D ATCBC #### [facility] [address] [place] [address] Dr. Patricia Carpenter WBC 6.3 103/ul Normal 4.0-11.0 [facility] Comment on above: Performed By: #### D ATCBC #### [facility] [address] [place] [address] Dr. Patricia Carpenter ELIEZER - TSHon 08-08-2021 TSH 2.242 uIU/mL Normal 0.358-3.740 [facility] Comment on above: Performed By: #### D ATTPAULA DATBMP #### [facility] [address] [place] [address] Dr. Patricia Carpenter TSH RANGE SEE BELOW Normal [facility] Comment on above: Result Comment: <0.3 4 UIU/ml HYPERTHYROID 0.34-5.60 UIU/ml EUTHYROID >5.60 UIU/ml HYPOTHYROID Performed By: #### D ATTSH, DATBMP #### [facility] [address] [place] [address] Dr. Patricia Carpenter ELIEZER- BMP WITH LIPIDon 2021 Anion gap [Moles/Vol] 11.3 mmol/L Normal [facility] Comment on above: Performed By: #### D ATTSH, DATBMP #### [facility] [address] [place] [address] Dr. Patricia Carpenter Calcium [Mass/Vol] 8.7 mg/dL Normal 8.5-10.1 [facility] Comment on above: Performed By: #### D ATTSH, DATBMP #### [facility] [address] [place] [address] Dr. Patricia Carpenter Chloride [Moles/Vol] 106 mmol/L Normal 98-107 [facility] Comment on above: Performed By: #### D ATTSH, DATBMP #### [facility] [address] [place] [address] Dr. Patricia Carpenter Cholesterol [Mass/Vol] 184 mg/dL Normal <=200 [facility] Comment on above: Performed By: #### D ATTSH, DATBMP #### [facility] [address] [address] [address] Patricia Carpenter Cholesterol in HDL [Mass/Vol] 55 mg/dL Normal 40-60 [facility] Comment on above: Performed By: #### D ATTPAULA, DATBMP #### [facility] [address] [place] [address] Dr. Patricia Carpenter Cholesterol in LDL [Mass/Vol] 112.8 mg/dL Normal [facility] Comment on above: Performed By: #### D ATTPAULA, DATBMP #### [facility] [address] [place] [address] Dr. Patricia Carpenter CO2 [Moles/Vol] 27.1 mmol/L Normal 21.0-32.0 [facility] Comment on above: Performed By: #### D ATTPAULA, DATBMP #### [facility] [address] [place] [address] Dr. Patricia Carpenter Creatinine [Mass/Vol] 0.73 mg/dL Normal 0.55-1.02 [facility] Comment on above: Performed By: #### D ATTSH, DATBMP #### [facility] [address] [place] [address] Dr. Patricia Carpenter EGFR-AF JAMAICAN >60 Normal >=60 [facility] Comment on above: Performed By: #### D ATTSH, DATBMP #### [facility] [address] [place] [address] Dr. Patricia Carpenter EGFR-NON AF JAMAICAN >60 Normal >=60 [facility] Comment on above: Performed By: #### D ATTSH, DATBMP #### [facility] [address] [place] [address] Dr. Patricia Carpenter Glucose [Mass/Vol] 104 mg/dL Normal 74-106 [facility] Comment on above: Performed By: #### D ATTPAULA, DATBMP #### [facility] [address] [address] [address] Patricia Carpenter HDL NORMAL > or = 60 mg/dl - LO W CARDIOVASCULAR RISK <40 mg/dl - HIGH CARDIOVASCULAR RISK Normal [facility] Comment on above: Performed By: #### D ATTSH, DATBMP #### [facility] [address] [place] [address] Dr. Patricia Carpenter LDL CALC NORMAL SEE BELOW Normal [facility] Comment on above: Result Comment: <100 mg/dl OPTIMAL 100 - 129 mg/dl NEAR OR ABOVE OPTIMAL 130 - 159 mg/dl BORDERLINE HIGH 160 - 189 mg/dl HIGH >190 mg/dl VERY HIGH Performed By: #### D ATTPAULA, DATBMP #### [facility] [address] [address] [address] Patricia Carpenter Potassium [Moles/Vol] 4.4 mmol/L Normal 3.5-5.1 [facility] Comment on above: Performed By: #### D ATTPAULA, DATBMP #### [facility] [address] [place] [address] Dr. Patricia Carpenter Sodium [Moles/Vol] 140 mmol/L Normal 136-145 [facility] Comment on above: Performed By: #### D ATTPAULA, DATBMP #### [facility] [address] [place] [address] Dr. Patricia Carpenter Triglyceride [Mass/Vol] 81 mg/dL Normal <=150 [facility] Comment on above: Performed By: #### D ATTSH, DATBMP #### [facility] [address] [place] [address] Dr. Patricia Carpenter Urea nitrogen [Mass/Vol] 17.0 mg/dL Normal 7.0-18.0 [facility] Comment on above: Performed By: #### D ATTSH, DATBMP #### [facility] [address] [place] [address] Dr. Patricia Carpenter Urea nitrogen/Creatinine [Mass ratio] 23.3 mg/mg Normal [facility] Comment on above: Performed By: #### D MIKAELA JACOBSENP #### [facility] [address] [place] [address] Dr. Patricia Carpenter VLDL CALC 16.2 mg/dL Normal [facility] Comment on above: Performed By: #### D ELIEZER JACOBSENBMP #### [facility] [address] [place] [address] Dr. Patricia Carpenter TSHon 11-22-2020 TSH 1.825 uIU/mL Normal 0.470-4.680 [facility] Comment on above: Performed By: #### T SH #### [facility] [address] [place] [address] Dr. Patricia Carpenter TSH RANGE SEE BELOW Normal [facility] Comment on above: Result Comment: <0.3 4 UIU/ml HYPERTHYROID 0.34-5.60 UIU/ml EUTHYROID >5.60 UIU/ml HYPOTHYROID Performed By: #### T SH #### [facility] [address] [place] [address] Dr. Patricia Carpenter Coding Summary.on 11-17-2019 Coding Summary. CODING DATE: 11/17/2019 FINAL [facility] STATUS: Home (Routine DC) PAYOR: Commercial Insurance [...] July Date Saved: 11/17/2019 06:53 pm Normal [facility] Coding Summary. CODING DATE: 11/17/2019 FINAL [facility] STATUS: Home (Routine DC) PAYOR: Commercial Insurance [...] BerthaJuly Date Saved: 11/17/2019 06:52 pm Normal [facility] Coding Summary. CODING DATE: 11/17/2019 FINAL [facility] STATUS: Home (Routine DC) PAYOR: Commercial [...] July Date Saved: 11/17/2019 06:52 pm Normal [facility] COVID-19 ([facility]on 10-22-2019 COVID FT Intrl QC Pass Normal Pass [facility] Comment on above: Performed By: #### 2 [id number] #### [facility] [address] [place] [address] COVID-19 ([facility]) Not Detected Normal Not Detected [facility] Comment on above: Result Comment: This test result should be correlated with clinical presentations and medical history by a healthcare provider to determine its clinical significance. This assay was performed by a reverse transcriptase real-time polymerase chain reaction (rt PCR) method on the [employer] system. This test has been authorized only [...] or revoked sooner. Performed By: #### 2 [id number] #### [facility] [address] [place] [address] Specimen source Nom (Unsp spec) Nasal Normal [facility] Comment on above: Performed By: #### 2 [id number] #### [facility] [address] [place] [address] Employed in Healthcare YES Normal [facility] Comment on above: Performed By: #### 2 [id number] #### [facility] [address] [place] [address] First Test Unknown Normal [facility] Comment on above: Performed By: #### 2 [id number] #### [facility] [address] [place] [address] Hospitalized? NO Normal [facility] Comment on above: Performed By: #### 2 [id number] #### [facility] [address] [place] [address] ICU NO Normal [facility] Comment on above: Performed By: #### 2 [id number] #### [facility] [address] [place] [address] ? Unknown Normal [facility] Comment on above: Performed By: #### 2 [id number] #### [facility] [address] [place] [address] Resides in a Congregate Care Setting Unknown Normal [facility] Comment on above: Performed By: #### 2 [id number] #### [facility] [address] [place] [address] Symptomatic as defined by CDC Unknown Normal [facility] Comment on above: Performed By: #### 2 [id number] #### [facility] [address] [place] [address] Physician Orderon 10-22-2019 Physician Order [id number]:127 Normal [facility] DIGITAL SCREEN SELF REFE RRAL W OR WO CAD BILATERALon 10-07-2018 No mammographic evidence for malignancy. BIRADS: BIRADS - CATEGORY 1 Negative, no evidence of malignancy. Normal interval follow-up is recommended in 12 months. OVERALL ASSESSMENT - NEGATIVE A letter of notification will be sent to the patient regarding the results. [employer] recommends annual mammograms for women 40 years and older. [facility] [place] EXAMINATION: BILATERAL DIGITAL SCREENING MAMMOGRAM, 10/06/2018 [...] abnormality is identified on the tomosynthesis images. [place], [place], pn Incoming Radiant Results From [employer] - 10/07/2018 9:22 AM EDT EXAMINATION: BILATERAL [...] to the patient regarding the results. [employer] recommends annual mammograms for women 40 years and older. [place], [place] Vital Signs Date Time Vital Sign Value Performing Clinician Facility 12-31-2023 11:49-0500 Body height 157.48 cm [facility] 12-31-2023 11:49-0500 Body mass index (BMI) [Ratio] 28.7 kg/m2 [facility] 12-31-2023 11:49-0500 Body weight 71.21 kg [facility] 12-31-2023 11:49-0500 Diastolic blood pressure 96 mm[Hg] [facility] 12-31-2023 11:49-0500 Heart rate 83 /min [facility] 12-31-2023 11:49-0500 Systolic blood pressure 165 mm[Hg] [facility] 11-22-2022 11:45-0400 Body height 156.21 cm Jumana Pinto Other [facility] Other 11-22-2022 11:45-0400 Body mass index (BMI) [Ratio] 25.09 kg/m2 Jumana Pinto Other [facility] Other 11-22-2022 11:45-0400 Body weight 61.24 kg Jumana Pinto Other [facility] Other 11-22-2022 11:45-0400 Diastolic blood pressure 84 mm[Hg] Jumana Pinto Other [facility] Other 11-22-2022 11:45-0400 Systolic blood pressure 135 mm[Hg] Jumana Pinto Other [facility] Other Encounters Encounter Date Encounter Type Care Provider Facility Start: 12-31-2023 End: 12-31-2023 ambulatory [facility] Work Phone: Start: 12-31-2023 End: 12-31-2023 Patient encounter procedure [facility] Work Phone: Start: 04-23-2023 End: 04-26-2023 ambulatory [facility] Start: 03-17-2023 End: 03-17-2023 ambulatory Jumana Pinto Other [facility] Other Start: 03-17-2023 Telephone encounter Jumana Bindu [facility] Start: 12-19-2022 End: 12-19-2022 ambulatory Jumana Pinto Other [facility] Other Start: 12-19-2022 Telephone encounter Jumana Bindu [facility] Start: 11-22-2022 End: 11-22-2022 ambulatory Jumana Pinto Other [facility] Other Start: 11-22-2022 Office outpatient vi sit 15 minutes Jumana Pinto [facility] Start: 03-27-2022 End: 03-27-2022 Patient encounter procedure Jumana Pinto MD Work Phone: [facility] Start: 03-27-2022 End: 03-27-2022 Subsequent hospital visit by physician Jumana Pinto MD Work Phone: [facility] Comment on above: Women's annual routi ne gynecological examination Start: 08-08-2021 End: 08-09-2021 ambulatory NONE LISTED REQUEST Facility:[facility] Start: 11-22-2020 End: 11-23-2020 ambulatory SHAIKH Vidhya MEGANGauravMARCIE Facility: Start: 10-06-2018 End: 10-06-2018 Subsequent hospital visit by physician [facility] Comment on above: Well woman exam with routine gynecological exam; Screening for HPV (human papillomavirus) Start: 10-06-2018 End: 10-08-2018 Subsequent hospital visit by physician [facility] Comment on above: Breast cancer screen ing Procedures Date Procedure Procedure Detail Performing Clinician Start: 10-06-2018 Screening digital br east tomosynthesis bi Madelin Valenzuela Marcos Work Phone: Start: 10-06-2018 Microscopic observat ion [Identifier] in Cervix by Cyto stain Jumana Pinto MD Work Phone: Plan of Treatment Date Care Activity Detail Author Start: 01-17-2024 Screening for malign ant neoplasm of breast [facility] Start: 10-07-2023 Screening for malign ant neoplasm of cervix [facility] Start: 04-02-2023 End: 04-02-2023 Patient encounter procedure 04/02/2023 Office Visit Obstetrics and Gynecology Madelin Rodríguez, [employer] - CN[facility] [address] [place] [address] [facility] Start: 12-11-2022 End: 12-11-2022 Patient encounter procedure 12/11/2022 Office Visit Obstetrics and Gynecology Madelin Rodríguez [employer] - CNM [address] [place] [address] [facility] Start: 05-01-2022 End: 05-01-2022 Patient encounter procedure 05/01/2022 Office Visit Obstetrics and Gynecology Madelin Rodríguez APRN - [facility]ir [address] [place] [address] [facility] Start: 05-01-2022 End: 05-01-2022 Professional / ancillary services management 05/01/2022 Ancillary Procedure Obstetrics and Gynecology [facility] Start: 12-25-2021 Depression Screen Depression Screen [facility] Start: 10-06-2021 Screening for malign ant neoplasm of cervix Pap smear [facility] Start: 09-17-2021 Influenza vaccination Flu vaccine (# 1) [facility] Start: 2021 Shingles vaccine (1 of 2) Shingles vaccine (1 of 2) [facility] Start: 10-07-2019 Diabetes screen Diabetes screen [place], [place] Comment on above: Postponed from 03/12 (Not Indicated) Start: 10-07-2019 Lipid screen Lipid screen [place], [place] Comment on above: Postponed from 10/31 (Not Indicated) Start: 07-10-2019 Cervical cancer screen Cervical canc er screen [place], [place] Start: 11-23-2018 HIV screen HIV screen [place], [place] Comment on above: Postponed from 03/12 (Not Indicated) Start: 10-27-2018 DTaP/Tdap/Td vaccine (1 - Tdap) DTaP/Tdap/Td vaccine (1 - Tdap) [place], [place] Comment on above: Postponed from 03/12 (Not Indicated) Start: 10-18-2018 Influenza vaccination Flu vaccine (# 1) [place], [place] Start: 10-31-2017 Lipid panel Lipids [facility] Start: 2016 Screening for malign ant neoplasm of colon [facility] Start: 2006 Diabetes screen Diabetes screen [facility] Start: 1990 DTaP/Tdap/Td vaccine (1 - Tdap) DTaP/Tdap/Td vaccine (1 - Tdap) [facility] Start: 1989 Hepatitis C screening Hepatitis C sc reen [facility] Start: 1986 HIV screening HIV screen [facility] Start: 1971 COVID-19 Vaccine (#1) COVID-19 Vacci ne (#1) [facility] End: 10-06-2018 Cytopathology procedure, preparation of smear, genital source [facility] Routine Well woman exam with routine gynecological exam Screening for HPV (human papillomavirus) 1 Occurrences starting 10/06/2018 until 10/06/2018 [place], [place] Comment on above: 1 Occurrences starti ng 10/06/2018 until 10/06/2018 End: 03-27-2022 Cytopathology procedure, preparation of smear, genital source [facility] Routine Women's Annual Routine Gynecological Examination 1 Occurrences starting 03/27/2022 until 03/27/2022 [facility] Work Phone: Comment on above: 1 Occurrences starti ng 03/27/2022 until 03/27/2022 XR Cervical spine 5 Views [facility] XR Clavicle - right Views [facility] Immunizations Immunization Date Immunization Notes Care Provider Megan zhao 07-21-2020 COVID-19 Vaccine Pfi zer - Documentation Purposes Only Jumana Pinto Other [facility] 06-30-2020 COVID-19 Vaccine Pfi zer - Documentation Purposes Only Jumana Pinto Other [facility] Payers Date Payer Category Payer Unknown [id number] 2021 Unknown [id number] 2016 Private Health Insurance [employer] [place] [employer] xxxxxxxxxx 2016-Present [phone] [address] [place] [address] xxxxxxxxxx [id number] 1971 Unknown [id number] 1971 Unknown [id number] 1971 Unknown [id number] 1959 Private Health Insurance [id number] 1959 Self-pay 1959 Unknown [id number] Unknown [id number] Social History Date Type Detail Facility Start: 10-06-2018 End: 06-13-2023 Tobacco smoking status NHIS Never smoker [facility] Start: 10-06-2018 [facility] 1970 Sex Assigned At Not on file [place], [place] Start: 10-06-2018 Tobacco use and exposure Smokeless tobacco non-user [facility] Work Phone: Start: 03-27-2022 Alcohol intake 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) [employer] Phone: Start: 12-31-2023 Sex Female (finding) [facility] Start: 1970 Sex Assigned At Female [facility] Evaluation note 03-17-2023 Note Date & Type Note Facility 03-17-2023 Evaluation note Encounter Date Diagnosis Assessment Notes Feb, АНДРЕЙ (generalized anxiety disorder) (ICD-10 - F41.1) [facility] Other Evaluation note 12-19-2022 Note Date & Type Note Facility 12-19-2022 Evaluation note Encounter Date Diagnosis Assessment Notes Dec, АНДРЕЙ (generalized anxiety disorder) (ICD-10 - F41.1) [facility] Other Evaluation note 11-22-2022 Note Date & Type Note Facility 11-22-2022 Evaluation note Encounter Date Diagnosis Assessment Notes Nov, АНДРЕЙ (generalize d anxiety disorder) (ICD-10 - F41.1) Discussed counseling, herbal supplements and start medication. She agrees to start med and will report effects in 3-4 weeks. [facility] Other Evaluation note Note Date & Type Note Facility Evaluation note Diagnosis Women's annual routine gynecological examination documented in this encounter [facility] Work Phone: Evaluation note Note Date & Type Note Facility Evaluation note Diagnosis Onset Date Resolution Cervical pain acute December 302023 11:39am Pain of right clavicle acute December 30, 2 024 11:39am [facility] Work Phone: History general Narrative - Reported Note Date & Type Note Facility History general Narrative - Reported Type Medical History АНДРЕЙ (generalized anxiety disorde r) Medical History Fatigue Surgical History x 3 Hospitalization History child [facility] Other Assessments Diagnosis Well woman exam with routine gynecological exam Routine gynecological examination Screening for HPV (human papillomavirus) Special screening examination for human papillomavirus (HPV) Diagnosis Breast cancer screening Breast screening, unspecified Advance Directives Documents on File Type Date Recorded 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 Advance Directives and Living Will Power of [employer] 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 Documents on File Type Date Recorded 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 Advance Directives and Living Will Power of [employer] 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 Advance Directive Response Recorded Date/ Time Advance Directives No December 11:38am Reason for Referral Status Reason Specialty Diagnoses / Procedures Referred By Contact Referred To Contact Authorized Radiology Diagnoses Breast cancer screening Procedures ESTRELLA DIGITAL SCREEN SELF REFERRAL W OR WO CAD BILATERAL Madelin Rodríguez, [employer] - CN[facility] [address] [place] [address] Summary Purpose Family History Relationship Condition Age [...] MAMMOGRAPHY BI 2-VIEW BREAST INC Madelin Wetzel, [employer] - CN [address] [place] [address] [facility] [address] INFORMATION SOURCE (unrecogn ized section and content) DATE CREATED AUTHOR 11/18/2019 [facility] DATE CREATED AUTHOR AUTHOR'S ORGANIZ ATION 08/11/2021 [facility] DATE CREATED AUTHOR AUTHOR'S ORGANIZ ATION 04/26/2023 [facility] Care Teams (unrecognized sec tion and content) 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 [facility] provides no warranty or guarantee of the accuracy or completeness of information in this document.
--- OUTSIDE RECORDS SUMMARY | 2024-03-10 07:30 | XMS_ITS | CCD ---
Author Organization [facility] Care Team Providers Care Insurance Billing Specialist Name Role Phone Unavailable Primary Care Provider [...] Unavailable Jumana Pinto MD Primary Care Provider Jumana Pinto MADELIN RODRÍGUEZ Referring Unavailable JUMANA PINTO Primary Care Unavailable Allergies Allergy Classification Reported Allergen(s) Allergy Type Date of Onset Reaction(s) Facility (3 sources) Penicillins Propensity to adverse reactions to drug 4 [place], [place] Comment on above: Onset Date: 11/23/19 21 (1 source) Penicillins Propensity to adverse reactions to drug [address] [place] [address] (4 sources) Penicillin G Drug Allergy 4 [facility] (3 sources) Substance with penicillin structure and antibacterial mechanism of action (substance) Drug allergy 1 Unknown [employer] Other Medications Current Medications Medication Drug Class(es) Dates Sig (Normalized) Sig (Original) nystatin 100 unt/mg topical powder (3 sources) Polyene Antifungal Start: 07-09-2016 nystatin (MYCOSTATIN) 705171 UNIT/GM powder Indications: Tinea cruris Apply 2 [...] Name Value Interpretation Reference Range Facil ity [facility] NAYELI DIGITAL SCREEN SELF REFERRAL W OR WO CAD BILATERALon 04-23-2023 [facility] NAYELI DIGITAL SCREEN SELF REFERRAL W OR [...] to the patient regarding the results. [employer] recommends annual mammograms for women 40 years and older. Interpreted by: Rohit Garza DO Signed by: Rohit Garza DO 04/23/23 Recipients: Jumana Pinto MD - Fax Final result Normal [facility] VIT D 1 25 DIHYDROXYon 08-10 Calcitriol(1,25 di-OH Vit D) 40.3 pg/mL Normal 24.8-81.5 [facility] Comment on above: Result Comment: Pl ease note reference interval change Performed By: #### V [id number] #### [facility] [address] [place] [address] Dr. Patricia Carpenter CBC AUTO DIFFon 08-08-2021 BASO # 0.1 103/ul Normal 0.0-0.1 [facility] Comment on above: Performed By: #### D ATCBC #### [facility] [address] [place] [address] Dr. Patricia Carpenter Basophils/100 WBC (Bld) 1.1 % Normal 0.2-2.0 [facility] Comment on above: Performed By: #### D ATCBC #### [facility] [address] [place] [address] Dr. Patricia Carpenter EO # 0.2 103/ul Normal 0.0-0.7 [facility] Comment on above: Performed By: #### D ATCBC #### [facility] [address] [place] [address] Dr. Patricia Carpenter Eosinophils/100 WBC (Bld) 2.4 % Normal 0.9-7.0 [facility] Comment on above: Performed By: #### D ATCBC #### [facility] [address] [place] [address] Dr. Patricia Carpenter Erythrocyte distribution width (RBC) [Ratio] 14.5 % Normal 11.0-15.0 [facility] Comment on above: Performed By: #### D ATCBC #### [facility] [address] [place] [address] Dr. Patricia Carpenter Hematocrit (Bld) [Volume fraction] 37.9 % Normal 36.0-48.0 [facility] Comment on above: Performed By: #### D ATCBC #### [facility] [address] [place] [address] Dr. Patricia Carpenter Hemoglobin (Bld) [Mass/Vol] 12.1 g/dL Normal 12.0-16.0 [facility] Comment on above: Performed By: #### D ATCBC #### [facility] [address] [place] [address] Dr. Patricia Carpenter IG # 0.03 10e3/ul Normal 0.00-0.03 [facility] Comment on above: Performed By: #### D ATCBC #### [facility] [address] [place] [address] Dr. Patricia Carpenter IG % 0.5 % Normal 0.0-0.5 [facility] Comment on above: Performed By: #### D ATCBC #### [facility] [address] [place] [address] Dr. Patricia Carpenter LYMPH # 1.5 103/ul Normal 1.2-3.8 [facility] Comment on above: Performed By: #### D ATCBC #### [facility] [address] [place] [address] Dr. Patricia Carpenter Lymphocytes/100 WBC (Bld) 22.9 % Normal 20.5-60.0 [facility] Comment on above: Performed By: #### D ATCBC #### [facility] [address] [place] [address] Dr. Patricia Carpenter MCH (RBC) [Entitic mass] 27.7 pg Normal 26.7-34.0 [facility] Comment on above: Performed By: #### D ATCBC #### [facility] [address] [place] [address] Dr. Patricia Carpenter MCHC (RBC) [Mass/Vol] 31.9 g/dL Normal 29.9-35.2 [facility] Comment on above: Performed By: #### D ATCBC #### [facility] [address] [place] [address] Dr. Patricia Carpenter MCV (RBC) [Entitic vol] 86.7 fL Normal 81.0-99.0 [facility] Comment on above: Performed By: #### D ATCBC #### [facility] [address] [place] [address] Dr. Patricia Carpenter MONO # 0.6 103/ul Normal 0.3-0.8 [facility] Comment on above: Performed By: #### D ATCBC #### [facility] [address] [place] [address] Dr. Patricia Carpenter Monocytes/100 WBC (Bld) 9.5 % Normal 1.7-12.0 [facility] Comment on above: Performed By: #### D ATCBC #### [facility] [address] [place] [address] Dr. Patricia Carpenter NEUT # 4.0 103/ul Normal 1.4-6.5 [facility] Comment on above: Performed By: #### D ATCBC #### [facility] [address] [place] [address] Dr. Patricia Carpenter Neutrophils/100 WBC (Bld) 63.6 % Normal 43.0-75.0 [facility] Comment on above: Performed By: #### D ATCBC #### [facility] [address] [place] [address] Dr. Patricia Carpenter Platelet mean volume (Bld) [Entitic vol] 9.5 fL Normal 9.5-13.5 [facility] Comment on above: Performed By: #### D ATCBC #### [facility] [address] [place] [address] Dr. Patricia Carpenter PLT 303 103/ul Normal 150-450 [facility] Comment on above: Performed By: #### D ATCBC #### [facility] [address] [place] [address] Dr. Patricia Carpenter RBC 4.37 106/ul Normal 4.20-5.40 [facility] Comment on above: Performed By: #### D ATCBC #### [facility] [address] [place] [address] Dr. Patricia Carpenter WBC 6.3 103/ul Normal 4.0-11.0 [facility] Comment on above: Performed By: #### D ATCBC #### [facility] [address] [place] [address] Dr. Patricia Carpenter ELIEZER - TSHon 08-08-2021 TSH 2.242 uIU/mL Normal 0.358-3.[address] [facility] Comment on above: Performed By: #### D ATTPAULA DATBMP #### [facility] [address] [place] [address] Dr. Patricia Carpenter TSH RANGE SEE BELOW Normal [facility] Comment on above: Result Comment: <0.3 4 UIU/ml HYPERTHYROID 0.34-5.60 UIU/ml EUTHYROID >5.60 UIU/ml HYPOTHYROID Performed By: #### D ATTSH, DATBMP #### [facility] [address] [place] [address] Dr. Patricia Carpenter ELIEZER- BMP WITH LIPIDon 2021 Anion gap [Moles/Vol] 11.3 mmol/L Normal [facility] Comment on above: Performed By: #### D ATTSH, DATBMP #### [facility] [address] [place] [address] Dr. Patricia Carpenter Calcium [Mass/Vol] 8.7 mg/dL Normal 8.5-10.1 [facility] Comment on above: Performed By: #### D ATTSH, DATBMP #### [facility] [address] [place] [address] Dr. Patricia Carpenter Chloride [Moles/Vol] 106 mmol/L Normal 98-107 [facility] Comment on above: Performed By: #### D ATTSH, DATBMP #### [facility] [address] [place] [address] Dr. Patricia Carpenter Cholesterol [Mass/Vol] 184 mg/dL Normal <=200 [facility] Comment on above: Performed By: #### D ATTSH, DATBMP #### [facility] [address] [address] [address] Patricia Carpenter Cholesterol in HDL [Mass/Vol] 55 mg/dL Normal 40-60 [facility] Comment on above: Performed By: #### D ATTPAULA, DATBMP #### [facility] [address] [place] [address] Dr. Patricia Carpenter Cholesterol in LDL [Mass/Vol] 112.8 mg/dL Normal [facility] Comment on above: Performed By: #### D ATTPAULA, DATBMP #### [facility] [address] [place] [address] Dr. Patricia Carpenter CO2 [Moles/Vol] 27.1 mmol/L Normal 21.0-32.0 [facility] Comment on above: Performed By: #### D ATTPAULA, DATBMP #### [facility] [address] [place] [address] Dr. Patricia Carpenter Creatinine [Mass/Vol] 0.73 mg/dL Normal 0.55-1.02 [facility] Comment on above: Performed By: #### D ATTSH, DATBMP #### [facility] [address] [place] [address] Dr. Patricia Carpenter EGFR-AF PALESTINIAN >60 Normal >=60 [facility] Comment on above: Performed By: #### D ATTSH, DATBMP #### [facility] [address] [place] [address] Dr. Patricia Carpenter EGFR-NON AF PALESTINIAN >60 Normal >=60 [facility] Comment on above: Performed By: #### D ATTSH, DATBMP #### [facility] [address] [place] [address] Dr. Patricia Carpenter Glucose [Mass/Vol] 104 mg/dL Normal 74-106 [facility] Comment on above: Performed By: #### D ATTPAULA, DATBMP #### [facility] [address] [address] [address] Patricia Carpenter HDL NORMAL > or = 60 mg/dl - LO W CARDIOVASCULAR RISK <40 mg/dl - HIGH CARDIOVASCULAR RISK Normal [facility] Comment on above: Performed By: #### D ATTSH, DATBMP #### [facility] [address] [place] [address] Dr. Patricia Carpenter LDL CALC NORMAL SEE BELOW Normal [facility] Comment on above: Result Comment: <100 mg/dl OPTIMAL 100 - 129 mg/dl NEAR OR ABOVE OPTIMAL 130 - 159 mg/dl BORDERLINE HIGH 160 - 189 mg/dl HIGH >190 mg/dl VERY HIGH Performed By: #### D ATTPAULA, DATBMP #### [facility] [address] [address] [address] Patricia Carpenter Potassium [Moles/Vol] 4.4 mmol/L Normal 3.5-5.1 [facility] Comment on above: Performed By: #### D ATTPAULA, DATBMP #### [facility] [address] [place] [address] Dr. Patricia Carpenter Sodium [Moles/Vol] 140 mmol/L Normal 136-145 [facility] Comment on above: Performed By: #### D ATTPAULA, DATBMP #### [facility] [address] [place] [address] Dr. Patricia Carpenter Triglyceride [Mass/Vol] 81 mg/dL Normal <=150 [facility] Comment on above: Performed By: #### D ATTSH, DATBMP #### [facility] [address] [place] [address] Dr. Patricia Carpenter Urea nitrogen [Mass/Vol] 17.0 mg/dL Normal 7.0-18.0 [facility] Comment on above: Performed By: #### D ATTSH, DATBMP #### [facility] [address] [place] [address] Dr. Patricia Carpenter Urea nitrogen/Creatinine [Mass ratio] 23.3 mg/mg Normal [facility] Comment on above: Performed By: #### D MIKAELA JACOBSENP #### [facility] [address] [place] [address] Dr. Patricia Carpenter VLDL CALC 16.2 mg/dL Normal [facility] Comment on above: Performed By: #### D ELIEZER JACOBSENBMP #### [facility] [address] [place] [address] Dr. Patricia Carpenter TSHon 11-22-2020 TSH 1.825 uIU/mL Normal 0.470-4.[address] [facility] Comment on above: Performed By: #### T SH #### [facility] [address] [place] [address] Dr. Patricia Carpenter TSH RANGE SEE BELOW Normal [facility] Comment on above: Result Comment: <0.3 4 UIU/ml HYPERTHYROID 0.34-5.60 UIU/ml EUTHYROID >5.60 UIU/ml HYPOTHYROID Performed By: #### T SH #### [facility] [address] [place] [address] Dr. Patricia Carpenter Coding Summary.on 11-17-2019 Coding Summary. CODING DATE: 11/17/2019 FINAL [facility] STATUS: Home (Routine DC) PAYOR: Commercial Insurance [...] July Date Saved: 11/17/2019 06:53 pm Normal [facility] Coding Summary. CODING DATE: 11/17/2019 FINAL [facility] STATUS: Home (Routine DC) PAYOR: Commercial Insurance [...] BerthaJuly Date Saved: 11/17/2019 06:52 pm Normal [facility] Coding Summary. CODING DATE: 11/17/2019 FINAL [facility]SC STATUS: Home (Routine DC) PAYOR: [...] July Date Saved: 11/17/2019 06:52 pm Normal [facility] COVID-19 ([facility])on 10-22-2019 COVID FT Intrl QC Pass Normal Pass [facility] Comment on above: Performed By: #### 2 [id number] #### [facility] [address] [place] [address] COVID-19 ([facility]) Not Detected Normal Not Detected [facility] Comment on above: Result Comment: This test result should be correlated with clinical presentations and medical history by a healthcare provider to determine its clinical significance. This assay was performed by a reverse transcriptase real-time polymerase chain reaction (rt PCR) method on the [employer] system. This test has been authorized only [...] or revoked sooner. Performed By: #### 2 [id number] #### [facility] [address] [place] [address] Specimen source Nom (Unsp spec) Nasal Normal [facility] Comment on above: Performed By: #### 2 [id number] #### [facility] [address] [place] [address] Employed in Healthcare YES Normal [facility] Comment on above: Performed By: #### 2 [id number] #### [facility] [address] [place] [address] First Test Unknown Normal [facility] Comment on above: Performed By: #### 2 [id number] #### [facility] [address] [place] [address] Hospitalized? NO Normal [facility] Comment on above: Performed By: #### 2 [id number] #### [facility] [address] [place] [address] ICU NO Normal [facility] Comment on above: Performed By: #### 2 [id number] #### [facility] [address] [place] [address] ? Unknown Normal [facility] Comment on above: Performed By: #### 2 [id number] #### [facility] [address] [place] [address] Resides in a Congregate Care Setting Unknown Normal [facility] Comment on above: Performed By: #### 2 [id number] #### [facility] [address] [place] [address] Symptomatic as defined by CDC Unknown Normal [facility] Comment on above: Performed By: #### 2 [id number] #### [facility] [address] [place] [address] Physician Orderon 10-22-2019 Physician Order [id number]:127 Normal [facility] DIGITAL SCREEN SELF REFE RRAL W OR WO CAD BILATERALon 10-07-2018 No mammographic evidence for malignancy. BIRADS: BIRADS - CATEGORY 1 Negative, no evidence of malignancy. Normal interval follow-up is recommended in 12 months. OVERALL ASSESSMENT - NEGATIVE A letter of notification will be sent to the patient regarding the results. [employer] recommends annual mammograms for women 40 years and older. [facility] [place] EXAMINATION: BILATERAL DIGITAL SCREENING MAMMOGRAM, 10/06/2018 [...] abnormality is identified on the tomosynthesis images. [place], [place], pn Incoming Radiant Results From [employer] - 10/07/2018 9:22 AM EDT EXAMINATION: BILATERAL [...] to the patient regarding the results. [employer] recommends annual mammograms for women 40 years and older. [place], [place] Vital Signs Date Time Vital Sign Value Performing Clinician Facility 12-31-2023 11:49-0500 Body height 157.48 cm [facility] 12-31-2023 11:49-0500 Body mass index (BMI) [Ratio] 28.7 kg/m2 [facility] 12-31-2023 11:49-0500 Body weight 71.21 kg [facility] 12-31-2023 11:49-0500 Diastolic blood pressure 96 mm[Hg] [facility] 12-31-2023 11:49-0500 Heart rate 83 /min [facility] 12-31-2023 11:49-0500 Systolic blood pressure 165 mm[Hg] [facility] 11-22-2022 11:45-0400 Body height 156.21 cm Jumana Pinto Other [employer] Other 11-22-2022 11:45-0400 Body mass index (BMI) [Ratio] 25.09 kg/m2 Jumana Pinto Other [employer] Other 11-22-2022 11:45-0400 Body weight 61.24 kg Jumana Pinto Other [employer] Other 11-22-2022 11:45-0400 Diastolic blood pressure 84 mm[Hg] Jumana Pinto Other [employer] Other 11-22-2022 11:45-0400 Systolic blood pressure 135 mm[Hg] Jumana Pinto Other [employer] Other Encounters Encounter Date Encounter Type Care Provider Facility Start: 12-31-2023 End: 12-31-2023 ambulatory [facility] Work Phone: Start: 12-31-2023 End: 12-31-2023 Patient encounter procedure [facility] Work Phone: Start: 04-23-2023 End: 04-26-2023 ambulatory [facility] Start: 03-17-2023 End: 03-17-2023 ambulatory Jumana Pinto Other [employer] Other Start: 03-17-2023 Telephone encounter Jumana Bindu [facility] Start: 12-19-2022 End: 12-19-2022 ambulatory Jumana Pinto Other [employer] Other Start: 12-19-2022 Telephone encounter Jumana Bindu [facility] Start: 11-22-2022 End: 11-22-2022 ambulatory Jumana Pinto Other [employer] Other Start: 11-22-2022 Office outpatient vi sit 15 minutes Jumana Pinto [facility] Start: 03-27-2022 End: 03-27-2022 Patient encounter procedure Jumana Pinto MD Work Phone: [facility] Start: 03-27-2022 End: 03-27-2022 Subsequent hospital visit by physician Jumana Pinto MD Work Phone: [facility] Comment on above: Women's annual routi ne gynecological examination Start: 08-08-2021 End: 08-09-2021 ambulatory NONE LISTED REQUEST Facility:[facility] Start: 11-22-2020 End: 11-23-2020 ambulatory SHAIKH Vidhya MEGANGauravMARCIE Facility: Start: 10-06-2018 End: 10-06-2018 Subsequent hospital visit by physician [facility] Comment on above: Well woman exam with routine gynecological exam; Screening for HPV (human papillomavirus) Start: 10-06-2018 End: 10-08-2018 Subsequent hospital visit by physician [facility] [place] Comment on above: Breast cancer screen ing Procedures Date Procedure Procedure Detail Performing Clinician Start: 10-06-2018 Screening digital br east tomosynthesis bi Madelin Valenzuela Marcos Work Phone: Start: 10-06-2018 Microscopic observat ion [Identifier] in Cervix by Cyto stain Jumana Pinto MD Work Phone: Plan of Treatment Date Care Activity Detail Author Start: 01-17-2024 Screening for malign ant neoplasm of breast [facility] Start: 10-07-2023 Screening for malign ant neoplasm of cervix [facility] Start: 04-02-2023 End: 04-02-2023 Patient encounter procedure 04/02/2023 Office Visit Obstetrics and Gynecology Madelin Rodríguez, REAMING MACHINE OPERATOR - CNM [address] [facility] [place] [address] [facility] Start: 12-11-2022 End: 12-11-2022 Patient encounter procedure 12/11/2022 Office Visit Obstetrics and Gynecology Madelin Rodríguez REAMING MACHINE OPERATOR - CNM [address] [place] [address] [facility] Start: 05-01-2022 End: 05-01-2022 Patient encounter procedure 05/01/2022 Office Visit Obstetrics and Gynecology Madelin Rodríguez APRN - CNTamir [address] [place] [address] [facility] Start: 05-01-2022 End: 05-01-2022 Professional / ancillary services management 05/01/2022 Ancillary Procedure Obstetrics and Gynecology [facility] Start: 12-25-2021 Depression Screen Depression Screen [facility] Start: 10-06-2021 Screening for malign ant neoplasm of cervix Pap smear [facility] Start: 09-17-2021 Influenza vaccination Flu vaccine (# 1) [facility] Start: 2021 Shingles vaccine (1 of 2) Shingles vaccine (1 of 2) [facility] Start: 10-07-2019 Diabetes screen Diabetes screen [place], [place] Comment on above: Postponed from 03/12 (Not Indicated) Start: 10-07-2019 Lipid screen Lipid screen [place], [place] Comment on above: Postponed from 10/31 (Not Indicated) Start: 07-10-2019 Cervical cancer screen Cervical canc er screen [place], [place] Start: 11-23-2018 HIV screen HIV screen [place], [place] Comment on above: Postponed from 03/12 (Not Indicated) Start: 10-27-2018 DTaP/Tdap/Td vaccine (1 - Tdap) DTaP/Tdap/Td vaccine (1 - Tdap) [place], [place] Comment on above: Postponed from 03/12 (Not Indicated) Start: 10-18-2018 Influenza vaccination Flu vaccine (# 1) [place], [place] Start: 10-31-2017 Lipid panel [facility]ids [facility] Start: 2016 Screening for malign ant neoplasm of colon [facility] Start: 2006 Diabetes screen Diabetes screen [facility] Start: 1990 DTaP/Tdap/Td vaccine (1 - Tdap) DTaP/Tdap/Td vaccine (1 - Tdap) [facility] Start: 1989 Hepatitis C screening Hepatitis C sc reen [facility] Start: 1986 HIV screening HIV screen [facility] Start: 1971 COVID-19 Vaccine (#1) COVID-19 Vacci ne (#1) [facility] End: 10-06-2018 Cytopathology procedure, preparation of smear, genital source [facility] Routine Well woman exam with routine gynecological exam Screening for HPV (human papillomavirus) 1 Occurrences starting 10/06/2018 until 10/06/2018 [place], [place] Comment on above: 1 Occurrences starti ng 10/06/2018 until 10/06/2018 End: 03-27-2022 Cytopathology procedure, preparation of smear, genital source [facility] Routine Women's Annual Routine Gynecological Examination 1 Occurrences starting 03/27/2022 until 03/27/2022 [facility] Work Phone: Comment on above: 1 Occurrences starti ng 03/27/2022 until 03/27/2022 XR Cervical spine 5 Views [facility] XR Clavicle - right Views [facility] Immunizations Immunization Date Immunization Notes Care Provider Megan zhao 07-21-2020 COVID-19 Vaccine Pfi zer - Documentation Purposes Only Jumana Pinto Other [facility] 06-30-2020 COVID-19 Vaccine Pfi zer - Documentation Purposes Only Jumana Pinto Other [facility] Payers Date Payer Category Payer Unknown [id number] 2021 Unknown [id number] 2016 Private Health Insurance [employer] [place] [employer] xxxxxxxxxx 2016-Present [phone] [address] [place] [address] xxxxxxxxxx [id number] 1971 Unknown [id number] 1971 Unknown [id number] 1971 Unknown [id number] 1959 Private Health Insurance [id number] 1958 Self-pay 1958 Unknown [id number] Unknown [id number] Social History Date Type Detail Facility Start: 10-06-2018 End: 06-13-2023 Tobacco smoking status NHIS Never smoker [facility] Start: 10-06-2018 [facility] 1970 Sex Assigned At Not on file [place], [place] Start: 10-06-2018 Tobacco use and exposure Smokeless tobacco non-user [employer] Work Phone: Start: 03-27-2022 Alcohol intake Current non-dr diamond cutter of alcohol (finding) [employer] Phone: Start: 12-31-2023 Sex Female (finding) [facility] Start: 1970 Sex Assigned At Female F [facility] Evaluation note 03-17-2023 Note Date & Type Note Facility 03-17-2023 Evaluation note Encounter Date Diagnosis Assessment Notes Feb, АНДРЕЙ (generalized anxiety disorder) (ICD-10 - F41.1) [facility] Other Evaluation note 12-19-2022 Note Date & Type Note Facility 12-19-2022 Evaluation note Encounter Date Diagnosis Assessment Notes Dec, АНРДЕЙ (generalized anxiety disorder) (ICD-10 - F41.1) [facility] Other Evaluation note 11-22-2022 Note Date & Type Note Facility 11-22-2022 Evaluation note Encounter Date Diagnosis Assessment Notes Nov, АНДРЕЙ (generalize d anxiety disorder) (ICD-10 - F41.1) Discussed counseling, herbal supplements and start medication. She agrees to start med and will report effects in 3-4 weeks. [facility] Other Evaluation note Note Date & Type Note Facility Evaluation note Diagnosis Women's annual routine gynecological examination documented in this encounter [facility] Work Phone: Evaluation note Note Date & Type Note Facility Evaluation note Diagnosis Onset Date Resolution Cervical pain acute December 302023 11:39am Pain of right clavicle acute December 30, 2 024 11:39am [facility] Work Phone: History general Narrative - Reported Note Date & Type Note Facility History general Narrative - Reported Type Medical History АНДРЕЙ (generalized anxiety disorde r) Medical History Fatigue Surgical History x 3 Hospitalization History child [facility] [facility] Other Assessments Diagnosis Well woman exam with routine gynecological exam Routine gynecological examination Screening for HPV (human papillomavirus) Special screening examination for human papillomavirus (HPV) Diagnosis Breast cancer screening Breast screening, unspecified Advance Directives Documents on File Type Date Recorded 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 Advance Directives and Living Will Power of Service Dog Trainer Documents on File Type Date Recorded 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 Advance Directives and Living Will Power of Service Dog Trainer Advance Directive Response Recorded Date/ Time Advance Directives No December 11:38am Reason for Referral Status Reason Specialty Diagnoses / Procedures Referred By Contact Referred To Contact Authorized Radiology Diagnoses Breast cancer screening Procedures ESTRELLA DIGITAL SCREEN SELF REFERRAL W OR WO CAD BILATERAL Madelin Rodríguez, REAMING MACHINE OPERATOR - CNM [address] [place] [address] Summary Purpose Family History Relationship Condition Age [...] MAMMOGRAPHY BI 2-VIEW BREAST INC Madelin Wetzel, REAMING MACHINE OPERATOR - CN [address] [place] [address] [facility] [place] [address] INFORMATION SOURCE (unrecogn ized section and content) DATE CREATED AUTHOR 11/18/2019 [facility] DATE CREATED AUTHOR AUTHOR'S ORGANIZ ATION 08/11/2021 [facility] DATE CREATED AUTHOR AUTHOR'S ORGANIZ ATION 04/26/2023 [facility] Care Teams (unrecognized sec tion and content) Insurance Billing Specialist Relationship Specialty Start Date End Date Jumana Pinto MD [address] [place] [id number] PCP - General Family Medicine 12/25/20 Team [...] BE BASED ON THE PRIMARY CLINICAL RECORDS. [facility] provides no warranty or guarantee of the accuracy or completeness of information in this document.
[2024-03-10 07:43] LABS: Basophils Absolute Auto 0.1 10^3/uL (0.0-0.1); Basophils Percent Auto 0.9 % (0.2-2.0); Eosinophils Absolute Auto 0.3 10^3/uL (0.0-0.7); Eosinophils Percent Auto 5.2 % (0.9-7.0); Hematocrit 38.4 % (36.0-48.0); Hemoglobin 12.3 g/dL (12.0-16.0); Immature Granulocytes Abs Auto 0.02 10^3/uL (0.00-0.03); Immature Granulocytes Pct Auto 0.4 % (0.0-0.5); Lymphocytes Absolute Auto 1.2 10^3/uL (1.2-3.8); Lymphocytes Percent Auto 22.4 % (20.5-60.0); Mean Corpuscular Hemoglobin 27.7 pg (26.7-34.0); Mean Corpuscular Volume 86.5 fL (81.0-99.0); Mean Platelet Volume 8.5 fL (9.5-13.5); Monocytes Absolute Auto 0.4 10^3/uL (0.3-0.8); Monocytes Percent Auto 7.3 % (1.7-12.0); Neutrophils Absolute Auto 3.4 10^3/uL (1.4-6.5); Neutrophils Percent Auto 63.8 % (43.0-75.0); Platelet Count 283 10^3/uL (150-450); Red Blood Count 4.44 10^6/uL (4.20-5.40); Red Cell Distribution Width 13.3 % (11.0-15.0); White Blood Count 5.4 10^3/uL (4.0-11.0)
[2024-03-10 08:17] LABS: BUN Creatinine Ratio 20.8; Calcium 8.6 mg/dL (8.5-10.1); Carbon Dioxide 30.1 mmol/L (21.0-32.0); Chloride 105 mmol/L (98-107); Estimated GFR (African America >60 (>=60 mL/min/1.73m^2); Estimated GFR (Non-African Ame >60 (>=60 mL/min/1.73m^2); Glucose 103 mg/dL (74-106); Potassium 4.1 mmol/L (3.5-5.1); Sodium 142 mmol/L (136-145); Thyroid Stimulating Hormone 1.573 uIU/mL (0.358-3.740)
== END 2024-03-10 07:28 | disposition home or self-care (01) ==
PROVIDERS: PCP Family Medicine; Visit Provider Family Medicine
DX: Z00.00 Encounter for general adult medical examination without abnormal findings (principal); R00.2 Palpitations
CPT/HCPCS: 36415; 80048; 84443; 85025

== ENCOUNTER 2024-03-10 07:29 | Outpatient (OUT) | payer BC, SELFPAY ==
--- OUTSIDE RECORDS SUMMARY | 2024-03-10 07:33 | XMS_ITS | CCD ---
Author Organization [facility] Care Team Providers Care Commodity Broker Name Role Phone Unavailable Primary Care Provider [...] Propensity to adverse reactions to drug 4 [place], [place] Comment on above: Onset Date: 11/23/19 21 (1 source) Penicillins Propensity to adverse reactions to drug [address] [place] [address] (4 sources) Penicillin G Drug Allergy 4 [facility] (3 sources) Substance with penicillin structure and antibacterial mechanism of action (substance) Drug allergy 1 Unknown [employer] Other Medications Current Medications Medication Drug Class(es) Dates Sig (Normalized) Sig (Original) nystatin 100 unt/mg topical powder (3 sources) Polyene Antifungal Start: 07-09-2016 nystatin (MYCOSTATIN) [id number] UNIT/GM powder Indications: Tinea cruris Apply 2 [...] Name Value Interpretation Reference Range Facil ity [facility] N[facility] DIGITAL SCREEN SELF REFERRAL W OR WO CAD BILATERALon 04-23-2023 [facility] N[facility]EL[facility] DIGITAL SCREEN SELF REFERRAL W [...] to the patient regarding the results. [employer] recommends annual mammograms for women 40 years and older. Interpreted by: Rohit Garza DO Signed by: Rohit Garza DO 04/23/23 Recipients: Jumana Pinto MD - Fax Final result Normal [facility] VIT D 1 25 DIHYDROXYon 08-10 Calcitriol(1,25 di-OH Vit D) 40.3 pg/mL Normal 24.8-81.5 [facility] Comment on above: Result Comment: Pl ease note reference interval change Performed By: #### V [id number] #### [facility] [address] [place] [address] Dr. Patricia Carpenter CBC AUTO DIFFon 08-08-2021 BASO # 0.1 103/ul Normal 0.0-0.1 [facility] Comment on above: Performed By: #### D ATCBC #### [facility] [address] [place] [address] Dr. Patricia Carpenter Basophils/100 WBC (Bld) 1.1 % Normal 0.2-2.0 [facility] Comment on above: Performed By: #### D ATCBC #### [facility] [address] [place] [address] Dr. Patricia Carpenter EO # 0.2 103/ul Normal 0.0-0.7 [facility] Comment on above: Performed By: #### D ATCBC #### [facility] [address] [place] [address] Dr. Patricia Carpenter Eosinophils/100 WBC (Bld) 2.4 % Normal 0.9-7.0 [facility] Comment on above: Performed By: #### D ATCBC #### [facility] [address] [place] [address] Dr. Patricia Carpenter Erythrocyte distribution width (RBC) [Ratio] 14.5 % Normal 11.0-15.0 [facility] Comment on above: Performed By: #### D ATCBC #### [facility] [address] [place] [address] Dr. Patricia Carpenter Hematocrit (Bld) [Volume fraction] 37.9 % Normal 36.0-48.0 [facility] Comment on above: Performed By: #### D ATCBC #### [facility] [address] [place] [address] Dr. Patricia Carpenter Hemoglobin (Bld) [Mass/Vol] 12.1 g/dL Normal 12.0-16.0 [facility] Comment on above: Performed By: #### D ATCBC #### [facility] [address] [place] [address] Dr. Patricia Carpenter IG # 0.03 10e3/ul Normal 0.00-0.03 [facility] Comment on above: Performed By: #### D ATCBC #### [facility] [address] [place] [address] Dr. Patricia Carpenter IG % 0.5 % Normal 0.0-0.5 [facility] Comment on above: Performed By: #### D ATCBC #### [facility] [address] [place] [address] Dr. Patricia Carpenter LYMPH # 1.5 103/ul Normal 1.2-3.8 [facility] Comment on above: Performed By: #### D ATCBC #### [facility] [address] [place] [address] Dr. Patricia Carpenter Lymphocytes/100 WBC (Bld) 22.9 % Normal 20.5-60.0 [facility] Comment on above: Performed By: #### D ATCBC #### [facility] [address] [place] [address] Dr. Patricia Carpenter MCH (RBC) [Entitic mass] 27.7 pg Normal 26.7-34.0 [facility] Comment on above: Performed By: #### D ATCBC #### [facility] [address] [place] [address] Dr. Patricia Carpenter MCHC (RBC) [Mass/Vol] 31.9 g/dL Normal 29.9-35.2 [facility] Comment on above: Performed By: #### D ATCBC #### [facility] [address] [place] [address] Dr. Patricia Carpenter MCV (RBC) [Entitic vol] 86.7 fL Normal 81.0-99.0 [facility] Comment on above: Performed By: #### D ATCBC #### [facility] [address] [place] [address] Dr. Patricia Carpenter MONO # 0.6 103/ul Normal 0.3-0.8 [facility] Comment on above: Performed By: #### D ATCBC #### [facility] [address] [place] [address] Dr. Patricia Carpenter Monocytes/100 WBC (Bld) 9.5 % Normal 1.7-12.0 [facility] Comment on above: Performed By: #### D ATCBC #### [facility] [address] [place] [address] Dr. Patricia Carpenter NEUT # 4.0 103/ul Normal 1.4-6.5 [facility] Comment on above: Performed By: #### D ATCBC #### [facility] [address] [place] [address] Dr. Patricia Carpenter Neutrophils/100 WBC (Bld) 63.6 % Normal 43.0-75.0 [facility] Comment on above: Performed By: #### D ATCBC #### [facility] [address] [place] [address] Dr. Patricia Carpenter Platelet mean volume (Bld) [Entitic vol] 9.5 fL Normal 9.5-13.5 [facility] Comment on above: Performed By: #### D ATCBC #### [facility] [address] [place] [address] Dr. Patricia Carpenter PLT 303 103/ul Normal 150-450 [facility] Comment on above: Performed By: #### D ATCBC #### [facility] [address] [place] [address] Dr. Patricia Carpenter RBC 4.37 106/ul Normal 4.20-5.40 [facility] Comment on above: Performed By: #### D ATCBC #### [facility] [address] [place] [address] Dr. Patricia Carpenter WBC 6.3 103/ul Normal 4.0-11.0 [facility] Comment on above: Performed By: #### D ATCBC #### [facility] [address] [place] [address] Dr. Patricia Carpenter ELIEZER - TSHon 08-08-2021 TSH 2.242 uIU/mL Normal 0.358-3.740 [facility] Comment on above: Performed By: #### D ATTPAULA DATBMP #### [facility] [address] [place] [address] Dr. Patricia Carpenter TSH RANGE SEE BELOW Normal [facility] Comment on above: Result Comment: <0.3 4 UIU/ml HYPERTHYROID 0.34-5.60 UIU/ml EUTHYROID >5.60 UIU/ml HYPOTHYROID Performed By: #### D ATTSH, DATBMP #### [facility] [address] [place] [address] Dr. Patricia Carpenter ELIEZER- BMP WITH LIPIDon 2021 Anion gap [Moles/Vol] 11.3 mmol/L Normal [facility] Comment on above: Performed By: #### D ATTSH, DATBMP #### [facility] [address] [place] [address] Dr. Patricia Carpenter Calcium [Mass/Vol] 8.7 mg/dL Normal 8.5-10.1 [facility] Comment on above: Performed By: #### D ATTSH, DATBMP #### [facility] [address] [place] [address] Dr. Patricia Carpenter Chloride [Moles/Vol] 106 mmol/L Normal 98-107 [facility] Comment on above: Performed By: #### D ATTSH, DATBMP #### [facility] [address] [place] [address] Dr. Patricia Carpenter Cholesterol [Mass/Vol] 184 mg/dL Normal <=200 [facility] Comment on above: Performed By: #### D ATTSH, DATBMP #### [facility] [address] [address] [address] Patricia Carpenter Cholesterol in HDL [Mass/Vol] 55 mg/dL Normal 40-60 [facility] Comment on above: Performed By: #### D ATTPAULA, DATBMP #### [facility] [address] [place] [address] Dr. Patricia Carpenter Cholesterol in LDL [Mass/Vol] 112.8 mg/dL Normal [facility] Comment on above: Performed By: #### D ATTPAULA, DATBMP #### [facility] [address] [place] [address] Dr. Patricia Carpenter CO2 [Moles/Vol] 27.1 mmol/L Normal 21.0-32.0 [facility] Comment on above: Performed By: #### D ATTPAULA, DATBMP #### [facility] [address] [place] [address] Dr. Patricia Carpenter Creatinine [Mass/Vol] 0.73 mg/dL Normal 0.55-1.02 [facility] Comment on above: Performed By: #### D ATTSH, DATBMP #### [facility] [address] [place] [address] Dr. Patricia Carpenter EGFR-AF MALAGASY >60 Normal >=60 [facility] Comment on above: Performed By: #### D ATTSH, DATBMP #### [facility] [address] [place] [address] Dr. Patricia Carpenter EGFR-NON AF MALAGASY >60 Normal >=60 [facility] Comment on above: Performed By: #### D ATTSH, DATBMP #### [facility] [address] [place] [address] Dr. Patricia Carpenter Glucose [Mass/Vol] 104 mg/dL Normal 74-106 [facility] Comment on above: Performed By: #### D ATTPAULA, DATBMP #### [facility] [address] [address] [address] Patricia Carpenter HDL NORMAL > or = 60 mg/dl - LO W CARDIOVASCULAR RISK <40 mg/dl - HIGH CARDIOVASCULAR RISK Normal [facility] Comment on above: Performed By: #### D ATTSH, DATBMP #### [facility] [address] [place] [address] Dr. Patricia Carpenter LDL CALC NORMAL SEE BELOW Normal [facility] Comment on above: Result Comment: <100 mg/dl OPTIMAL 100 - 129 mg/dl NEAR OR ABOVE OPTIMAL 130 - 159 mg/dl BORDERLINE HIGH 160 - 189 mg/dl HIGH >190 mg/dl VERY HIGH Performed By: #### D ATTPAULA, DATBMP #### [facility] [address] [address] [address] Patricia Carpenter Potassium [Moles/Vol] 4.4 mmol/L Normal 3.5-5.1 [facility] Comment on above: Performed By: #### D ATTPAULA, DATBMP #### [facility] [address] [place] [address] Dr. Patricia Carpenter Sodium [Moles/Vol] 140 mmol/L Normal 136-145 [facility] Comment on above: Performed By: #### D ATTPAULA, DATBMP #### [facility] [address] [place] [address] Dr. Patricia Carpenter Triglyceride [Mass/Vol] 81 mg/dL Normal <=150 [facility] Comment on above: Performed By: #### D ATTSH, DATBMP #### [facility] [address] [place] [address] Dr. Patricia Carpenter Urea nitrogen [Mass/Vol] 17.0 mg/dL Normal 7.0-18.0 [facility] Comment on above: Performed By: #### D ATTSH, DATBMP #### [facility] [address] [place] [address] Dr. Patricia Carpenter Urea nitrogen/Creatinine [Mass ratio] 23.3 mg/mg Normal [facility] Comment on above: Performed By: #### D MIKAELA JACOBSENP #### [facility] [address] [place] [address] Dr. Patricia Carpenter VLDL CALC 16.2 mg/dL Normal [facility] Comment on above: Performed By: #### D ELIEZER JACOBSENBMP #### [facility] [address] [place] [address] Dr. Patricia Carpenter TSHon 11-22-2020 TSH 1.825 uIU/mL Normal 0.470-4.680 [facility] Comment on above: Performed By: #### T SH #### [facility] [address] [place] [address] Dr. Patricia Carpenter TSH RANGE SEE BELOW Normal [facility] Comment on above: Result Comment: <0.3 4 UIU/ml HYPERTHYROID 0.34-5.60 UIU/ml EUTHYROID >5.60 UIU/ml HYPOTHYROID Performed By: #### T SH #### [facility] [address] [place] [address] Dr. Patricia Carpenter Coding Summary.on 11-17-2019 Coding Summary. CODING DATE: 11/17/[address] [facility] STATUS: Home (Routine DC) PAYOR: Commercial Insurance [...] July Date Saved: 11/17/2019 06:53 pm Normal [facility] Coding Summary. CODING DATE: 11/17/[address] [facility] STATUS: Home (Routine DC) PAYOR: Commercial Insurance [...] BerthaJuly Date Saved: 11/17/2019 06:52 pm Normal [facility] Coding Summary. CODING DATE: 11/17/2019 FINAL [facility] STATUS: Home (Routine DC) PAYOR: [...] July Date Saved: 11/17/2019 06:52 pm Normal [facility] COVID-19 ([facility])on 10-22-2019 COVID FT Intrl QC Pass Normal Pass [facility] Comment on above: Performed By: #### 2 [id number] #### [facility] [address] [place] [address] COVID-19 ([facility]) Not Detected Normal Not Detected [facility] Comment on above: Result Comment: This test result should be correlated with clinical presentations and medical history by a healthcare provider to determine its clinical significance. This assay was performed by a reverse transcriptase real-time polymerase chain reaction (rt PCR) method on the [employer] system. This test has been authorized only [...] or revoked sooner. Performed By: #### 2 [id number] #### [facility] [address] [place] [address] Specimen source Nom (Unsp spec) Nasal Normal [facility] Comment on above: Performed By: #### 2 [id number] #### [facility] [address] [place] [address] Employed in Healthcare YES Normal [facility] Comment on above: Performed By: #### 2 [id number] #### [facility] [address] [place] [address] First Test Unknown Normal [facility] Comment on above: Performed By: #### 2 [id number] #### [facility] [address] [place] [address] Hospitalized? NO Normal [facility] Comment on above: Performed By: #### 2 [id number] #### [facility] [address] [place] [address] ICU NO Normal [facility] Comment on above: Performed By: #### 2 [id number] #### [facility] [address] [place] [address] ? Unknown Normal [facility] Comment on above: Performed By: #### 2 [id number] #### [facility] [address] [place] [address] Resides in a Congregate Care Setting Unknown Normal [facility] Comment on above: Performed By: #### 2 [id number] #### [facility] [address] [place] [address] Symptomatic as defined by CDC Unknown Normal [facility] Comment on above: Performed By: #### 2 [id number] #### [facility] [address] [place] [address] Physician Orderon 10-22-2019 Physician Order [id number]:127 Normal [facility] DIGITAL SCREEN SELF REFE RRAL W OR WO CAD BILATERALon 10-07-2018 No mammographic evidence for malignancy. BIRADS: BIRADS - CATEGORY 1 Negative, no evidence of malignancy. Normal interval follow-up is recommended in 12 months. OVERALL ASSESSMENT - NEGATIVE A letter of notification will be sent to the patient regarding the results. [employer] recommends annual mammograms for women 40 years and older. [facility] [place] EXAMINATION: BILATERAL DIGITAL SCREENING MAMMOGRAM, 10/06/2018 [...] abnormality is identified on the tomosynthesis images. [place], [place], pn Incoming Radiant Results From [facility] - 10/07/2018 9:22 AM EDT EXAMINATION: BILATERAL [...] to the patient regarding the results. [employer] recommends annual mammograms for women 40 years and older. [place], [place] Vital Signs Date Time Vital Sign Value Performing Clinician Facility 12-31-2023 11:49-0500 Body height 157.48 cm [facility] 12-31-2023 11:49-0500 Body mass index (BMI) [Ratio] 28.7 kg/m2 [facility] 12-31-2023 11:49-0500 Body weight 71.21 kg [facility] 12-31-2023 11:49-0500 Diastolic blood pressure 96 mm[Hg] [facility] 12-31-2023 11:49-0500 Heart rate 83 /min [facility] 12-31-2023 11:49-0500 Systolic blood pressure 165 mm[Hg] [facility] 11-22-2022 11:45-0400 Body height 156.21 cm Jumana Pinto Other [employer] Other 11-22-2022 11:45-0400 Body mass index (BMI) [Ratio] 25.09 kg/m2 Jumana Pinto Other [employer] Other 11-22-2022 11:45-0400 Body weight 61.24 kg Jumana Pinto Other [employer] Other 11-22-2022 11:45-0400 Diastolic blood pressure 84 mm[Hg] Jumana Pinto Other [employer] Other 11-22-2022 11:45-0400 Systolic blood pressure 135 mm[Hg] Jumana Pinto Other [employer] Other Encounters Encounter Date Encounter Type Care Provider Facility Start: 12-31-2023 End: 12-31-2023 ambulatory [facility] Work Phone: Start: 12-31-2023 End: 12-31-2023 Patient encounter procedure [facility] Work Phone: Start: 04-23-2023 End: 04-26-2023 ambulatory [facility] Start: 03-17-2023 End: 03-17-2023 ambulatory Jumana Pinto Other [employer] Other Start: 03-17-2023 Telephone encounter Jumana Bindu [facility] Start: 12-19-2022 End: 12-19-2022 ambulatory Jumana Pinto Other [employer] Other Start: 12-19-2022 Telephone encounter Jumana Bindu [facility] Start: 11-22-2022 End: 11-22-2022 ambulatory Jumana Pinto Other [employer] Other Start: 11-22-2022 Office outpatient vi sit 15 minutes Jumana Pinto [facility] Start: 03-27-2022 End: 03-27-2022 Patient encounter procedure Jumana Pinto MD Work Phone: [facility] Start: 03-27-2022 End: 03-27-2022 Subsequent hospital visit by physician Jumana Pinto MD Work Phone: [facility] Comment on above: Women's annual routi ne gynecological examination Start: 08-08-2021 End: 08-09-2021 ambulatory NONE LISTED REQUEST Facility:[facility] Start: 11-22-2020 End: 11-23-2020 ambulatory SHAIKH Vidhya MEGANGauravMARCIE Facility: Start: 10-06-2018 End: 10-06-2018 Subsequent hospital visit by physician [facility] Comment on above: Well woman exam with routine gynecological exam; Screening for HPV (human papillomavirus) Start: 10-06-2018 End: 10-08-2018 Subsequent hospital visit by physician [facility] [place] Comment on above: Breast cancer screen ing Procedures Date Procedure Procedure Detail Performing Clinician Start: 10-06-2018 Screening digital br east tomosynthesis bi Madelin Valenzuela Marcos Work Phone: Start: 10-06-2018 Microscopic observat ion [Identifier] in Cervix by Cyto stain Jumana Pinto MD Work Phone: Plan of Treatment Date Care Activity Detail Author Start: 01-17-2024 Screening for malign ant neoplasm of breast [facility] Start: 10-07-2023 Screening for malign ant neoplasm of cervix [facility] Start: 04-02-2023 End: 04-02-2023 Patient encounter procedure 04/02/2023 Office Visit Obstetrics and Gynecology Madelin Rodríguez, [place] CLAS[employer]OOM TUTOR - CNM [address] [place] [address] [facility] Start: 12-11-2022 End: 12-11-2022 Patient encounter procedure 12/11/2022 Office Visit Obstetrics and Gynecology Madelin Rodríguez IN CLASSROOM TUTOR - CNM [address] [place] [address] [facility] Start: 05-01-2022 End: 05-01-2022 Patient encounter procedure 05/01/2022 Office Visit Obstetrics and Gynecology Madelin Rodríguez APRN - CNTamir [address] [place] [address] [facility] Start: 05-01-2022 End: 05-01-2022 Professional / ancillary services management 05/01/2022 Ancillary Procedure Obstetrics and Gynecology [facility] Start: 12-25-2021 Depression Screen Depression Screen [facility] Start: 10-06-2021 Screening for malign ant neoplasm of cervix Pap smear [facility] Start: 09-17-2021 Influenza vaccination Flu vaccine (# 1) [facility] Start: 2021 Shingles vaccine (1 of 2) Shingles vaccine (1 of 2) [facility] Start: 10-07-2019 Diabetes screen Diabetes screen [place], [place] Comment on above: Postponed from 03/12 (Not Indicated) Start: 10-07-2019 Lipid screen Lipid screen [place], [place] Comment on above: Postponed from 10/31 (Not Indicated) Start: 07-10-2019 Cervical cancer screen Cervical canc er screen [place], [place] Start: 11-23-2018 HIV screen HIV screen [place], [place] Comment on above: Postponed from 03/12 (Not Indicated) Start: 10-27-2018 DTaP/Tdap/Td vaccine (1 - Tdap) DTaP/Tdap/Td vaccine (1 - Tdap) [place], [place] Comment on above: Postponed from 03/12 (Not Indicated) Start: 10-18-2018 Influenza vaccination Flu vaccine (# 1) [place], [place] Start: 10-31-2017 Lipid panel Lipids [facility] Start: 2016 Screening for malign ant neoplasm of colon [facility] Start: 2006 Diabetes screen Diabetes screen [facility] Start: 1990 DTaP/Tdap/Td vaccine (1 - Tdap) DTaP/Tdap/Td vaccine (1 - Tdap) [facility] Start: 1989 Hepatitis C screening Hepatitis C sc reen [facility] Start: 1986 HIV screening HIV screen [facility] Start: 1971 COVID-19 Vaccine (#1) COVID-19 Vacci ne (#1) [facility] End: 10-06-2018 Cytopathology procedure, preparation of smear, genital source [facility] Routine Well woman exam with routine gynecological exam Screening for HPV (human papillomavirus) 1 Occurrences starting 10/06/2018 until 10/06/2018 [place], [place] Comment on above: 1 Occurrences starti ng 10/06/2018 until 10/06/2018 End: 03-27-2022 Cytopathology procedure, preparation of smear, genital source [facility] Routine Women's Annual Routine Gynecological Examination 1 Occurrences starting 03/27/2022 until 03/27/2022 [facility] Work Phone: Comment on above: 1 Occurrences starti ng 03/27/2022 until 03/27/2022 XR Cervical spine 5 Views [facility] XR Clavicle - right Views [facility] Immunizations Immunization Date Immunization Notes Care Provider Megan zhao 07-21-2020 COVID-19 Vaccine Pfi zer - Documentation Purposes Only Jumana Pinto Other [facility] 06-30-2020 COVID-19 Vaccine Pfi zer - Documentation Purposes Only Jumana Pinto Other [facility] Payers Date Payer Category Payer Unknown [id number] 2021 Unknown [id number] 2016 Private Health Insurance [employer] [place] [employer] xxxxxxxxxx 2016-Present [phone] [address] [place] [address] xxxxxxxxxx [id number] 1971 Unknown [id number] 1971 Unknown [id number] 1971 Unknown [id number] 1959 Private Health Insurance [id number] Self-pay 1959 Unknown [id number] Unknown [id number] Social History Date Type Detail Facility Start: 10-06-2018 End: 06-13-2023 Tobacco smoking status [facility] Never smoker [employer] Start: 10-06-2018 [facility] 1970 Sex Assigned At Not on file [place], [place] Start: 10-06-2018 Tobacco use and exposure Smokeless tobacco non-user [employer] Work Phone: Start: 03-27-2022 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) [employer] Phone: Start: 12-31-2023 Sex Female (finding) [facility] Start: 1970 Sex Assigned At Female F [facility] Evaluation note 03-17-2023 Note Date & Type Note Facility 03-17-2023 Evaluation note Encounter Date Diagnosis Assessment Notes Feb, АНДРЕЙ (generalized anxiety disorder) (ICD-10 - F41.1) [facility] Other Evaluation note 12-19-2022 Note Date & Type Note Facility 12-19-2022 Evaluation note Encounter Date Diagnosis Assessment Notes Dec, АНДРЕЙ (generalized anxiety disorder) (ICD-10 - F41.1) [facility] Other Evaluation note 11-22-2022 Note Date & Type Note Facility 11-22-2022 Evaluation note Encounter Date Diagnosis Assessment Notes Nov, АНДРЕЙ (generalize d anxiety disorder) (ICD-10 - F41.1) Discussed counseling, herbal supplements and start medication. She agrees to start med and will report effects in 3-4 weeks. [facility] Other Evaluation note Note Date & Type Note Facility Evaluation note Diagnosis Women's annual routine gynecological examination documented in this encounter [facility] Work Phone: Evaluation note Note Date & Type Note Facility Evaluation note Diagnosis Onset Date Resolution Cervical pain acute December 302023 11:39am Pain of right clavicle acute December 30, 2 024 11:39am [facility] Work Phone: History general Narrative - Reported Note Date & Type Note Facility History general Narrative - Reported Type Medical History АНДРЕЙ (generalized anxiety disorde r) Medical History Fatigue Surgical History x 3 Hospitalization History child [facility] Other Assessments Diagnosis Well woman exam with routine gynecological exam Routine gynecological examination Screening for HPV (human papillomavirus) Special screening examination for human papillomavirus (HPV) Diagnosis Breast cancer screening Breast screening, unspecified Advance Directives Documents on File Type Date Recorded Patient Pharmacy Services Representative Expl anation Advance Directives and Living Will Power of Senior Telecommunications Technician Documents on File Type Date Recorded Patient Pharmacy Services Representative Expl anation Advance Directives and Living Will Power of Senior Telecommunications Technician Advance Directive Response Recorded Date/ Time Advance Directives No December 11:38am Reason for Referral Status Reason Specialty Diagnoses / Procedures Referred By Contact Referred To Contact Authorized Radiology Diagnoses Breast cancer screening Procedures ESTRELLA DIGITAL SCREEN SELF REFERRAL W OR WO CAD BILATERAL Madelin Rodríguez, [place] CLASSROOM TUTOR - CN[facility] [address] [place] [address] Summary Purpose Family History Relationship Condition Age [...] MAMMOGRAPHY BI 2-VIEW BREAST [employer] Madelin Wetzel, [place] CLASSROOM TUTOR - CN [address] [place] [address] [facility] [place] [id number] INFORMATION SOURCE (unrecogn ized section and content) DATE CREATED AUTHOR 11/18/2019 [facility] DATE CREATED AUTHOR AUTHOR'S ORGANIZ ATION 08/11/2021 [facility] DATE CREATED AUTHOR AUTHOR'S ORGANIZ ATION 04/26/2023 [facility] Care Teams (unrecognized sec tion and content) Commodity Broker Relationship Specialty Start Date End Date Jumana Pinto MD [address] [place] [id number] PCP - General Family Medicine 12/25/20 Team [...] BE BASED ON THE PRIMARY CLINICAL RECORDS. [facility] provides no warranty or guarantee of the accuracy or completeness of information in this document.
[2024-03-10 08:07] LABS: Alanine Aminotransferase 20 U/L (14-59); Aspartate Amino Transferase 14 U/L (15-37); Chol HDL Ratio 2.9; Cholesterol 179 mg/dL (<=200); HDL Cholesterol 62 mg/dL (40-60); Triglycerides 63 mg/dL (<=150); VLDL CHOLESTEROL 12.6 mg/dL
== END 2024-03-10 07:30 | disposition home or self-care (01) ==
LOC: LAB 07:31
PROVIDERS: PCP Family Medicine; Visit Provider Internal Medicine Cardiovascular Disease
DX: Z00.00 Encounter for general adult medical examination without abnormal findings (principal); E78.5 Hyperlipidemia, unspecified; R00.2 Palpitations
CPT/HCPCS: 36415; 80048; 80061; 84443; 84450; 84460; 85025